=== PATIENT | male | born 1935 | race Caucasian/White ===

== ENCOUNTER 2016-03-01 12:56 | Emergency (ER) | payer MEDICARE ==
--- NOTE | 2016-03-01 13:28 | ERPHSYRPT ---
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 No chest pain now chest looks clear not yet because I didn't we discussed the was when I got the troponin were I really I get I did give him some Lasix he had a little bit of noise is breath he said he spine distal feel quite right is empiric Rocephin and Inderal by 1) Patient Subjective Stated Complaint: laceration Triage Nursing Assessment: cut lt index and middle finger yesterday with a table saw. corners of both nails removed. bleeding controlled. radial pulse presnt. Physician History: The patient is an 80 year old male who is right-handed comes in complaining of cutting his left index finger and middle finger yesterday about 22 hours ago on a table saw. He wrapped the cuts in Band-Aids and came in today because he was worried about infection due to the wood that he was using. His last tetanus vaccination was 1 year ago. He denies numbness or tingling. Timing/Duration: yesterday, hour(s) (22) Quality: other (laceration) Severity: mild Location: hands (index and middle fingers of left hand) Possible Causes: other (laceration) Associated Symptoms: denies symptoms Allergies/Adverse Reactions: No Known Drug Allergies Allergy (Unverified 03/01/16 13:05) Home Medications: Simvastatin 20Mg [Zocor 20Mg] 20 mg PO HS 09/29/11 [History] Enalapril Maleate 10 mg [Vasotec 10 MG] 10 mg PO DAILY 06/06/12 [History] Potassium Chloride 10 Meq Tab* [Klor Con 10 MEQ] 20 meq PO DAILY 11/18/13 [ History] Aspirin 81 mg PO DAILY 12/19/14 [History] Amlodipine Besylate 5 mg [Norvasc 5 mg] 5 mg PO DAILY 11/18/15 [History] Hx Tetanus, Diphtheria Vaccination/Date Given: Yes Hx Influenza Vaccination/Date Given: Yes Hx Pneumococcal Vaccination/Date Given: No Immunizations Up to Date: Yes - Review of Systems Constitutional: No Fever, No Chills Eyes: No Symptoms Ears, Nose, & Throat: No Symptoms Respiratory: No Cough, No Dyspnea Cardiac: No Chest Pain, No Edema, No Syncope Abdominal/Gastrointestinal: No Abdominal Pain, No Nausea, No Vomiting, No Diarrhea Genitourinary Symptoms: No Dysuria Musculoskeletal: No Back Pain, No Neck Pain Skin: Other (laceration) Neurological: No Dizziness, No Focal Weakness, No Sensory Changes Psychological: No Symptoms Endocrine: No Symptoms Hematologic/Lymphatic: No Symptoms Immunological/Allergic: No Symptoms All Other Systems: Reviewed and Negative - Past Medical History Pertinent Past Medical History: Yes Neurological History: No Pertinent History, Other ENT History: No Pertinent History Cardiac History: High Cholesterol, Hypertension Respiratory History: No Pertinent History Endocrine Medical History: No Pertinent History Musculoskeletal History: Arthritis, Fractures GI Medical History: Pancreatitis History: No Pertinent History Psycho-Social History: No Pertinent History Male Reproductive Disorders: No Pertinent History Other Medical History: FRACTURE RIGHT ANKLE. erectile dysfunction, hypoganadism , neck pain, left eye injury,headaches, memory problems - Past Surgical History Past Surgical History: Yes Neuro Surgical History: No Pertinent History Cardiac: Cardiac Catheterization Respiratory: No Pertinent History Gastrointestinal: Appendectomy, Hernia Repair Genitourinary: No Pertinent History Musculoskeletal: Orthopedic Surgery Male Surgical History: No Pertinent History Other Surgical History: Fatty tumor removed on back, Right leg fracture - OR, colonoscopy, appy, hernia surgery, left finger - Social History Smoking Status: Never smoker Exposure to second hand smoke: No Drug Use: none Patient Lives Alone: No - Nursing Vital Signs Nursing Vital Signs: Initial Vital Signs Temperature 97.8 F Temperature Source Oral Pulse Rate 74 Respiratory Rate 18 Blood Pressure [] 140/72 Blood Pressure [] 140/72 Blood Pressure 140/79 Pain Intensity 0 - Physical Exam General Appearance: no apparent distress, alert Eye Exam: PERRL/EOMI, eyes nml inspection Ears, Nose, Throat Exam: normal ENT inspection, pharynx normal, moist mucous membranes Neck Exam: normal inspection, non-tender, supple, full range of motion Respiratory Exam: normal breath sounds, lungs clear, No respiratory distress Cardiovascular Exam: regular rate/rhythm, normal heart sounds Gastrointestinal/Abdomen Exam: soft, mass, No tenderness Rectal Exam: not done Back Exam: normal inspection, normal range of motion, No CVA tenderness, No vertebral tenderness Extremity Exam: other (laceration to left index and middle fingers) Neurologic Exam: alert, oriented x 3, cooperative, normal mood/affect, sensation nml, No motor deficits Skin Exam: laceration (lacerations to distal left index and middle fingers. lacerations involve fingernails.) SpO2 Interpretation: normal - Radiology Exams Left Hand X-ray Interpretation: Teleradiologist Report, Non-displaced Fracture (tuft fracture of left 2nd digit) Ordered Tests: Active Orders 24 hr Category Date Time Status IV Insertion STAT Care 03/01/16 14:12 Active Wound Care STAT Care 03/01/16 13:32 Active FINGER(S) Stat Exams 03/01/16 13:32 Completed Medication Summary Generic Name Dose Route Start Last Admin Trade Name Freq PRN Reason Stop Dose Admin Ampicillin Sodium/Sulbactam Sodium 100 mls @ 100 mls/hr 03/01/16 14:13 14:20 Unasyn 3gm / Nacl 100ml IV 03/01/16 15:12 100 mls/hr STAT ONE Administration Discontinued Medications Generic Name Dose Route Start Last Admin Trade Name Freq PRN Reason Stop Dose Admin Ampicillin Sodium/Sulbactam Sodium Confirm 03/01/16 14:15 Unasyn 3gm / Nacl 100ml Administered 03/01/16 14:16 Dose 100 mls @ ud .ROUTE .STK-MED ONE - Departure Time of Disposition: 14:44 Departure Disposition: Home Clinical Impression: Open fracture Condition: Stable Critical Care Time: No Referrals: MIRACLE DUFF [Primary Care Provider] - Instructions: Care for a Laceration After Repair Prescriptions: Amoxicillin/Potassium Clav [Augmentin 875-125 Tablet] 875 mg PO BID #20 tablet
--- NOTE | 2016-03-01 14:07 | XRAY ---
Indication: Laceration following table saw injury. Comparison: Left 2nd finger study of December 19, 2014. 3 views of the left 2nd/3rd fingers demonstrates new soft tissue laceration involving the distal fingers with new cortical fracture involving the tuft of the 2nd finger. Stable mild degenerative changes of the IP joints. No other bony, articular, or soft tissue abnormalities.
[2016-03-01] MEDS ORDERED: Unasyn 3GM / NaCl 100ML 100 ML IV ONE (14:13)
[2016-03-01] MEDS ORDERED: Unasyn 3GM / NaCl 100ML 100 ML ONE (14:15)
[2016-03-01 14:23] VITALS: O2SAT 97
[2016-03-01 15:38] VITALS: BP 154/78; PULSE 72
== END 2016-03-01 15:35 | disposition home or self-care (01) ==
LOC: ED 12:56
DX: S62.651B Nondisplaced fracture of middle phalanx of left index finger, initial encounter for open fracture (principal); S61.211A Laceration without foreign body of left index finger without damage to nail, initial encounter; S61.213A Laceration without foreign body of left middle finger without damage to nail, initial encounter; W31.2XXA Contact with powered woodworking and forming machines, initial encounter; E78.00 Pure hypercholesterolemia, unspecified; I10 Essential (primary) hypertension
CPT/HCPCS: 36000; 73140; 96365; 99283; J0295

== ENCOUNTER 2016-08-19 17:18 | Emergency (ER) | payer MEDICARE ==
[2016-08-19 17:38] VITALS: O2SAT 95
--- NOTE | 2016-08-19 17:49 | ERPHSYRPT ---
- History of Present Illness Time Seen by Provider: 08/19/16 17:41 Source: patient Exam Limitations: no limitations Patient Subjective Stated Complaint: pt states he noticed swelling to his left lower leg before bedtime last evening. states this afternoon his right leg began to swell. denies any pain. reports no difference in his routine except the addition of some OTC vitamin supplements. reports past history of some renal insuff r/t chronic ibuprofen use. Triage Nursing Assessment: pt is aox3, ambulatory to cot with no difficulty, resps are easy and non labored, radial pulses are strong and equal. pedal pulses are present and strong, equal bilat. edema present in lower extremities bilat, 1+pitting to the left with non pitting edema noted to the right. Physician History: The patient is an 80-year-old male with his daughter complaining of bilateral leg swelling that began last night and has continued today. The swelling isn't severe but the daughter looked up what might cause leg swelling on the Internet and became concerned. He denies any shortness of breath. He denies fever or chills. He denies chest pain. His past medical history is significant for hypertension, BPH, and high cholesterol. Occurred: yesterday Quality: other (swelling) Severity of Pain-Max: mild Severity of Pain-Current: mild (swelling) Modifying Factors: Improves With: nothing Associated Symptoms: none Allergies/Adverse Reactions: No Known Drug Allergies Allergy (Verified 08/19/16 17:38) Home Medications: Simvastatin 20Mg [Zocor 20Mg] 20 mg PO HS 09/29/11 [History] Enalapril Maleate 10 mg [Vasotec 10 MG] 10 mg PO DAILY 06/06/12 [History] Potassium Chloride 10 Meq Tab* [Klor Con 10 MEQ] 20 meq PO DAILY 11/18/13 [ History] Aspirin 81 mg PO DAILY 12/19/14 [History] Amlodipine Besylate 5 mg [Norvasc 5 mg] 5 mg PO DAILY 11/18/15 [History] Losartan Potassium 50 mg [Cozaar 50 MG] 50 mg PO DAILY 08/19/16 [History] Multivit-Min/FA/Lycopen/Lutein [Centrum Silver Men Tablet] 1 each PO DAILY 08/19 [History] Randall-3 Fatty Acids/Fish Oil [Fish Oil 1,000 mg Capsule] 1,000 mg PO DAILY 08/19/16 [History] Hx Tetanus, Diphtheria Vaccination/Date Given: Yes Hx Influenza Vaccination/Date Given: Yes Hx Pneumococcal Vaccination/Date Given: Yes Immunizations Up to Date: Yes - Review of Systems Constitutional: No Fever, No Chills Eyes: No Symptoms Ears, Nose, & Throat: No Symptoms Respiratory: No Cough, No Dyspnea Cardiac: No Chest Pain, No Edema, No Syncope Abdominal/Gastrointestinal: No Abdominal Pain, No Nausea, No Vomiting, No Diarrhea Genitourinary Symptoms: No Dysuria Musculoskeletal: No Back Pain, No Neck Pain Skin: Other (leg swelling) Neurological: No Dizziness, No Focal Weakness, No Sensory Changes Psychological: No Symptoms Endocrine: No Symptoms Hematologic/Lymphatic: No Symptoms Immunological/Allergic: No Symptoms All Other Systems: Reviewed and Negative - Past Medical History Pertinent Past Medical History: Yes Neurological History: No Pertinent History, Other ENT History: No Pertinent History Cardiac History: High Cholesterol, Hypertension Respiratory History: No Pertinent History Endocrine Medical History: No Pertinent History Musculoskeletal History: Arthritis, Fractures GI Medical History: Pancreatitis History: No Pertinent History Psycho-Social History: No Pertinent History Male Reproductive Disorders: No Pertinent History Other Medical History: FRACTURE RIGHT ANKLE. erectile dysfunction, hypoganadism , neck pain, left eye injury,headaches, memory problems - Past Surgical History Past Surgical History: Yes Neuro Surgical History: No Pertinent History Cardiac: Cardiac Catheterization Respiratory: No Pertinent History Gastrointestinal: Appendectomy, Hernia Repair Genitourinary: No Pertinent History Musculoskeletal: Orthopedic Surgery Male Surgical History: No Pertinent History Other Surgical History: Fatty tumor removed on back, Right leg fracture - OR, colonoscopy, appy, hernia surgery, left finger - Social History Smoking Status: Never smoker Exposure to second hand smoke: No Drug Use: none Patient Lives Alone: Yes - Nursing Vital Signs Nursing Vital Signs: Initial Vital Signs Temperature 98.3 F Temperature Source Oral Pulse Rate 63 Respiratory Rate 18 Blood Pressure [] 129/83 Pain Intensity 0 - Physical Exam General Appearance: alert Eyes, Ears, Nose, Throat Exam: moist mucous membranes Neck Exam: non-tender, supple Cardiovascular/Respiratory Exam: chest non-tender, normal breath sounds, regular rate/rhythm, no respiratory distress Gastrointestinal/Abdominal Exam: non-tender, guarding Back Exam: normal inspection, No vertebral tenderness Legs Exam: bilateral leg: swelling (Examination of both lower legs reveals mild 1+ pitting edema. There is an obvious no edema from where the patient had been wearing his tight socks all day. There is some sided edema proximal to the sock line.) Neuro/Tendon Exam: normal sensation, normal motor functions Mental Status Exam: alert, oriented x 3, cooperative Skin Exam: normal color, warm, dry SpO2 Interpretation: normal SpO2: 95 Oxygen Delivery: Room Air - Radiology Exams Chest X-ray Interpretation: Interpreted by me, Other (mild pulmonary vascular congestion.) Ordered Tests: Active Orders 24 hr Category Date Time Status CHEST 2 VIEWS (PA AND LAT) Stat Exams 08/19/16 17:53 Taken CBC W DIFF Stat Lab 08/19/16 18:00 Completed CMP Stat Lab 08/19/16 18:00 Received Lab/Rad Data: Laboratory Result Diagrams 08/19/16 18:00 08/19/16 18:00 Laboratory Results 08/19/16 08/19/16 Range/Units 18:00 18:00 WBC 6.7 (4.0-10.5) K/mm3 RBC 3.78 L (4.1-5.6) M/mm3 Hgb 12.7 (12.5-18.0) gm/dl Hct 36.5 L (42-50) % MCV 96.6 (78-100) fl MCH 33.5 H (26-32) pg MCHC 34.8 (32-36) g/dl RDW 12.1 (11.5-14.0) % Plt Count 157 (150-450) K/mm3 MPV 10.7 H (6-9.5) fl Gran % 66.6 H (36.0-66.0) % Lymphocytes % 23.5 L (24.0-44.0) % Monocytes % 8.8 (0.0-12.0) % Eosinophils % 1.0 (0.00-5.0) % Basophils % 0.1 (0.0-0.4) % Basophils # 0.01 (0-0.4) Sodium 143 (136-145) mEq/L Potassium 3.8 (3.5-5.1) mEq/L Chloride 106 (98-107) mEq/L Carbon Dioxide 26.6 (21-32) mEq/L Anion Gap 14.4 (5-15) MEQ/L BUN 20 (9-20) mg/dL Creatinine 1.21 (0.55-1.30) mg/dl Estimated GFR > 60 ML/MIN Glucose 122 H (70-110) MG/DL Calcium 8.7 (8.5-10.1) mg/dL Total Bilirubin 0.60 (0.2-1.0) mg/dL AST 22 (15-37) U/L ALT 13 (12-78) U/L Alkaline Phosphatase 71 (46-116) U/L Serum Total Protein 6.6 (6.4-8.2) gm/dL Albumin 3.7 (3.4-5.0) g/dL - Progress Progress: unchanged Counseled pt/family regarding: lab results, diagnosis, need for follow-up, rad results - Departure Time of Disposition: 18:30 Departure Disposition: Home Clinical Impression: Congestive heart failure Condition: Stable Critical Care Time: No Instructions: Heart Failure Additional Instructions: You have mild congestive heart failure. The chest x-ray shows that you have very mild pulmonary vascular congestion due to the congestive heart failure. Your laboratory values were within normal limits. Take Lasix 20 mg twice a day for 3 days. To balance the potassium loss that the Lasix causes, take potassium 20 mEq once a day for 3 days. Follow-up on Sunday. Prescriptions: Furosemide 20 mg [Lasix 20 mg] 20 mg PO BID #6 tablet Potassium Chloride 10 Meq Tab* [Klor Con 10 MEQ] 20 meq PO DAILY #3 tab
[2016-08-19 18:08] LABS: BASOPHIL % 0.1 % (0.0-0.4); Granulocytes % 66.6 % (36.0-66.0); Lymphocytes % 23.5 % (24.0-44.0); Mean Cell Volume 96.6 fl (78-100); Mean Corpuscular Hemoglobin 33.5 pg (26-32); Mean Platelet Volume 10.7 fl (6-9.5); Monocytes % 8.8 % (0.0-12.0); Platelet Count 157 K/mm3 (150-450); Red Blood Count 3.78 M/mm3 (4.1-5.6); Red Cell Distribution Width 12.1 % (11.5-14.0); White Blood Count 6.7 K/mm3 (4.0-10.5)
[2016-08-19 18:26] LABS: ALBUMIN 3.7 g/dL (3.4-5.0); ALKALINE PHOSPHATASE 71 U/L (46-116); ANION GAP 14.4 MEQ/L (5-15); BLOOD UREA NITROGEN 20 mg/dL (9-20); CHLORIDE 106 mEq/L (98-107); Carbon Dioxide 26.6 mEq/L (21-32); Glucose 122 MG/DL (70-110); Potassium 3.8 mEq/L (3.5-5.1); SGOT/AST 22 U/L (15-37); SGPT/ALT 13 U/L (12-78); SODIUM 143 mEq/L (136-145); Total Protein 6.6 gm/dL (6.4-8.2)
[2016-08-19] MEDS ORDERED: Klor Con 10 MEQ PO ONE ×2 (18:50→18:51)
[2016-08-19] MEDS ORDERED: LASIX 20 MG PO STA (18:50)
[2016-08-19 19:03] VITALS: BP 130/68; PULSE 72
--- NOTE | 2016-08-19 21:58 | XRAY ---
Indication: Lower leg swelling. Comparison: November 18, 2015. PA/lateral chest again demonstrates minimal bibasilar fibrosis/scarring. Upper lungs clear. Heart is not enlarged. Vascularity normal. Bony thorax intact again with mild osteopenia and degenerative changes. Impression: Stable nonacute chest with chronic features.
== END 2016-08-19 18:57 | disposition home or self-care (01) ==
LOC: ED 17:18
DX: I50.9 Heart failure, unspecified (principal); M79.89 Other specified soft tissue disorders; I10 Essential (primary) hypertension; E78.00 Pure hypercholesterolemia, unspecified; N40.0 Benign prostatic hyperplasia without lower urinary tract symptoms; Z79.899 Other long term (current) drug therapy
CPT/HCPCS: 36415; 71020; 80053; 85025; 99283; A9270-GY

== ENCOUNTER 2017-03-04 15:07 | Emergency (ER) | payer MEDICARE ==
[2017-03-04 15:24] VITALS: O2SAT 96
--- NOTE | 2017-03-04 15:54 | ERPHSYRPT ---
- History of Present Illness Time Seen by Provider: 03/04/17 15:41 Source: patient Patient Subjective Stated Complaint: here for pain to left leg, from thigh to calf with swellling, no injury Triage Nursing Assessment: pt alert, walked in Physician History: CC: left leg swelling Hx: 81 y/o patient of Dr Duff with hx of HTN. 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 A few days he worked a long time standing. He then had swelling of the left leg and some pain. No hx of venous thromboembolic disease. He has hx of gout and takes the medication sporadically. No fever or chills. No redness. Some pain centered around the left knee but no redness. Pain worse with moving. Seems better since propping it up. Allergies/Adverse Reactions: No Known Drug Allergies Allergy (Verified 08/19/16 17:38) Home Medications: Simvastatin 20Mg [Zocor 20Mg] 20 mg PO HS 09/29/11 [History] Enalapril Maleate 10 mg [Vasotec 10 MG] 10 mg PO DAILY 06/06/12 [History] Potassium Chloride 10 Meq Tab* [Klor Con 10 MEQ] 20 meq PO DAILY 11/18/13 [ History] Aspirin 81 mg PO DAILY 12/19/14 [History] Amlodipine Besylate 5 mg [Norvasc 5 mg] 5 mg PO DAILY 11/18/15 [History] Losartan Potassium 50 mg [Cozaar 50 MG] 50 mg PO DAILY 08/19/16 [History] Multivit-Min/FA/Lycopen/Lutein [Centrum Silver Men Tablet] 1 each PO DAILY 08/19 [History] Gilbert-3 Fatty Acids/Fish Oil [Fish Oil 1,000 mg Capsule] 1,000 mg PO DAILY 08/19/16 [History] Hx Tetanus, Diphtheria Vaccination/Date Given: Yes Hx Influenza Vaccination/Date Given: Yes Hx Pneumococcal Vaccination/Date Given: Yes Immunizations Up to Date: Yes - Review of Systems Constitutional: No Fever, No Chills Respiratory: No Dyspnea Cardiac: Edema (left leg), No Chest Pain Abdominal/Gastrointestinal: No Abdominal Pain Musculoskeletal: No Back Pain, No Neck Pain, No Injury, No Joint Redness Skin: No Rash Neurological: No Headache All Other Systems: Reviewed and Negative - Past Medical History Pertinent Past Medical History: Yes Neurological History: No Pertinent History, Other ENT History: No Pertinent History Cardiac History: High Cholesterol, Hypertension Respiratory History: No Pertinent History Endocrine Medical History: No Pertinent History Musculoskeletal History: Arthritis, Fractures GI Medical History: Pancreatitis History: No Pertinent History Psycho-Social History: No Pertinent History Male Reproductive Disorders: No Pertinent History Other Medical History: FRACTURE RIGHT ANKLE. erectile dysfunction, hypoganadism , neck pain, left eye injury,headaches, memory problems - Past Surgical History Past Surgical History: Yes Neuro Surgical History: No Pertinent History Cardiac: Cardiac Catheterization Respiratory: No Pertinent History Gastrointestinal: Appendectomy, Hernia Repair Genitourinary: No Pertinent History Musculoskeletal: Orthopedic Surgery Male Surgical History: No Pertinent History Other Surgical History: Fatty tumor removed on back, Right leg fracture - OR, colonoscopy, appy, hernia surgery, left finger - Social History Smoking Status: Never smoker Exposure to second hand smoke: No Drug Use: none Patient Lives Alone: No - Nursing Vital Signs Nursing Vital Signs: Initial Vital Signs Temperature 97.7 F 03/04/17 15:18 Pulse Rate 73 03/04/17 15:18 Respiratory Rate 16 03/04/17 15:18 Blood Pressure 150/90 03/04/17 15:18 O2 Sat by Pulse Oximetry 96 03/04/17 15:18 Pain Scale Pain Intensity 4 - Physical Exam General Appearance: alert, other (pleasant man) Eyes, Ears, Nose, Throat Exam: normal ENT inspection, moist mucous membranes Neck Exam: normal inspection, non-tender, supple Cardiovascular/Respiratory Exam: chest non-tender, normal breath sounds, regular rate/rhythm Gastrointestinal/Abdominal Exam: non-tender, soft Back Exam: normal inspection, normal range of motion Neuro/Tendon Exam: normal sensation, normal motor functions Mental Status Exam: alert, oriented x 3, cooperative Skin Exam: warm, dry, No rash SpO2 Interpretation: normal SpO2: 96 Oxygen Delivery: Room Air Comments: left leg has some edema, calf tenderness, tenderness around knee, no redness or warmth. - Course Nursing assessment & vital signs reviewed: Yes - Radiology Exams left knee X-ray Interpretation: Interpreted by me (DC, no fx) - Radiology Ultrasound Exam left leg Ultrasound: Other (negative for DVT per tech) Ordered Tests: Active Orders 24 hr Category Date Time Status KNEE (1 OR 2 VIEW) Stat Exams 03/04/17 15:48 Taken VENOUS UNILAT/LIMITED EXTREMIT [US] Stat Exams 03/04/17 15:48 Taken BMP Stat Lab 03/04/17 16:03 Completed CBC W DIFF Stat Lab 03/04/17 16:03 Completed Uric Acid Stat Lab 03/04/17 16:03 Completed Lab/Rad Data: Laboratory Result Diagrams 03/04/17 16:03 03/04/17 16:03 Laboratory Results 03/04/17 03/04/17 Range/Units 16:03 16:03 WBC 6.4 (4.0-10.5) K/mm3 RBC 3.97 L (4.1-5.6) M/mm3 Hgb 13.0 (12.5-18.0) gm/dl Hct 38.4 L (42-50) % MCV 96.7 (78-100) fl MCH 32.7 H (26-32) pg MCHC 33.9 (32-36) g/dl RDW 12.0 (11.5-14.0) % Plt Count 162 (150-450) K/mm3 MPV 10.2 H (6-9.5) fl Gran % 61.5 (36.0-66.0) % Lymphocytes % 26.6 (24.0-44.0) % Monocytes % 10.6 (0.0-12.0) % Eosinophils % 1.1 (0.00-5.0) % Basophils % 0.2 (0.0-0.4) % Basophils # 0.01 (0-0.4) Sodium 140 (136-145) mEq/L Potassium 3.8 (3.5-5.1) mEq/L Chloride 104 (98-107) mEq/L Carbon Dioxide 30.6 (21-32) mEq/L Anion Gap 9.3 (5-15) MEQ/L BUN 27 H (9-20) mg/dL Creatinine 1.67 H (0.55-1.30) mg/dl Estimated GFR 42 ML/MIN Glucose 130 H (70-110) MG/DL Uric Acid 8.4 H (3.5-7.2) mg/dL Calcium 8.7 (8.5-10.1) mg/dL - Progress Progress Note: 03/04/17 15:54 Will get sono to rule out DVT. Will check gout. 03/04/17 16:59 No sign of infection. Negative for DVT. Will Rx gout with colchicine and prednisone. Advised avoid NAIDS due to renal insufficiency. Counseled pt/family regarding: lab results, diagnosis, need for follow-up, rad results - Departure Time of Disposition: 16:59 Departure Disposition: Home Clinical Impression: Left knee pain, Gout, Renal insufficiency Condition: Fair Critical Care Time: No Referrals: MIRACLE DUFF [Primary Care Provider] - Instructions: Knee Pain (DC), Gout Additional Instructions: Avoid NSAIDS: ibuprofen, alleve, etc. Rx prednisone. Rx colchicine. Tylenol as directed for pain. Elevate legs. Follow up this week with Dr Duff. Return for fever or concerns. Prescriptions: Colchicine 0.6 mg PO BID #10 capsule Prednisone 20 mg [Deltasone 20 mg] 20 mg PO DAILY #5 tablet
[2017-03-04 16:26] LABS: BASOPHIL % 0.2 % (0.0-0.4); Basophil (Absolute #) 0.01 (0-0.4); Eosinophil % 1.1 % (0.00-5.0); Eosinophil (Absolute #) 0.07 (0-0.5); Granulocyte Absolute (ANC) 3.93 (1.4-6.9); Granulocytes % 61.5 % (36.0-66.0); Hematocrit 38.4 % (42-50); Lymphocytes % 26.6 % (24.0-44.0); Mean Cell Volume 96.7 fl (78-100); Mean Corpuscular Hemoglobin 32.7 pg (26-32); Mean Corpuscular Hgb Concent. 33.9 g/dl (32-36); Mean Platelet Volume 10.2 fl (6-9.5); Monocyte (Absolute #) 0.68 (0.0-1.3); Monocytes % 10.6 % (0.0-12.0); Platelet Count 162 K/mm3 (150-450); Red Blood Count 3.97 M/mm3 (4.1-5.6); White Blood Count 6.4 K/mm3 (4.0-10.5)
[2017-03-04 16:27] VITALS: BP 118/76; PULSE 80
[2017-03-04 16:36] LABS: ANION GAP 9.3 MEQ/L (5-15); Calcium 8.7 mg/dL (8.5-10.1); Carbon Dioxide 30.6 mEq/L (21-32); Creatinine 1 1.67 mg/dl (0.55-1.30); Potassium 3.8 mEq/L (3.5-5.1); Uric Acid 8.4 mg/dL (3.5-7.2)
--- NOTE | 2017-03-04 20:21 | XRAY ---
Indication: Left leg edema 3 days. Two-dimensional sonogram and color Doppler imaging of the major venous vessels of the left leg was performed. Comparison: None No thrombus seen in the examined deep venous vessels of the left leg including greater saphenous vein. Veins demonstrate normal compressibility. Venous waveforms are normal with and without augmentation. Impression: Left leg negative for DVT. Comment: Preliminary report was given.
--- NOTE | 2017-03-04 20:21 | XRAY ---
Indication: Pain and swelling. No known injury. Comparison: None AP/lateral left knee demonstrates mild medial joint space narrowing and small nonspecific effusion. No other bony, articular, or soft tissue abnormalities.
== END 2017-03-04 17:13 | disposition home or self-care (01) ==
LOC: ED 15:07
DX: M25.562 Pain in left knee (principal); M10.9 Gout, unspecified; N28.9 Disorder of kidney and ureter, unspecified; I10 Essential (primary) hypertension; M19.90 Unspecified osteoarthritis, unspecified site; Z79.899 Other long term (current) drug therapy
CPT/HCPCS: 36415; 73560; 80048; 84550; 85025; 93971; 99283; 99284

== ENCOUNTER 2018-06-21 20:02 | Emergency (ER) | payer MEDICARE ==
--- NOTE | 2018-06-21 20:38 | ERPHSYRPT ---
- History of Present Illness Time Seen by Provider: 06/21/18 20:18 Source: patient Exam Limitations: clinical condition Patient Subjective Stated Complaint: pt states he was working on the roof yesterday afternoon and fell backwards onto the roof and hit his rt elbow. daughter states she is concerned there may be asphalt from the roof in it. Triage Nursing Assessment: pt alert and oreinted, answers questions approp. pt ambulatory eith steady gait noted. respirations nonlabored with lungs cta. pupils equal and reacitve. senior windows systems engineer equal and wnl. pt reports sensation wnl. skin tears and bruising noted to rt elbow. no bleeding at this time. rom to rt elbow wnl Physician History: PATIENT WITH A HISTORY OF HYPERTENSION, SLIPPED WHILE WORKING ON A ROOF AND STRUCK HIS RIGHT ELBOW AGAINST THE ROOF LAST NIGHT. PATIENT COMPLAINS OF RIGHT ELBOW PAIN, AND ABRASION OVER RIGHT ELBOW. HE DENIES HEAD INJURY, NECK OR BACK INJURY. Occurred: yesterday Method of Injury: direct blow Quality: constant Severity of Pain-Max: mild Severity of Pain-Current: mild Extremities Pain Location: elbow: right Modifying Factors: Improves With: movement Associated Symptoms: none Allergies/Adverse Reactions: No Known Drug Allergies Allergy (Verified 06/21/18 20:32) Home Medications: Enalapril Maleate 10 mg [Vasotec 10 MG] 10 mg PO DAILY 06/06/12 [History] Potassium Chloride 10 Meq Tab* [Klor Con 10 MEQ] 10 meq PO BID 11/18/13 [ History] Aspirin 81 mg PO DAILY 12/19/14 [History] Losartan Potassium 50 mg [Cozaar 50 MG] 50 mg PO DAILY 08/19/16 [History] Pravastatin Sodium [Pravachol] 40 mg PO HS 06/21/18 [History] Tamsulosin HCl 0.4 mg [Flomax 0.4 MG] 0.4 mg PO DAILY 06/21/18 [History] Hx Tetanus, Diphtheria Vaccination/Date Given: Yes Hx Influenza Vaccination/Date Given: Yes Hx Pneumococcal Vaccination/Date Given: Yes Immunizations Up to Date: Yes - Review of Systems Constitutional: No Symptoms Musculoskeletal: Injury, Joint Pain, Joint Swelling Neurological: No Symptoms Psychological: No Symptoms - Past Medical History Pertinent Past Medical History: Yes Neurological History: No Pertinent History, Other ENT History: No Pertinent History Cardiac History: High Cholesterol, Hypertension Respiratory History: No Pertinent History Endocrine Medical History: No Pertinent History Musculoskeletal History: Arthritis, Fractures GI Medical History: Pancreatitis History: No Pertinent History Psycho-Social History: No Pertinent History Male Reproductive Disorders: No Pertinent History Other Medical History: FRACTURE RIGHT ANKLE. erectile dysfunction, hypoganadism , neck pain, left eye injury,headaches, memory problems - Past Surgical History Past Surgical History: Yes Neuro Surgical History: No Pertinent History Cardiac: Cardiac Catheterization Respiratory: No Pertinent History Gastrointestinal: Appendectomy, Hernia Repair Genitourinary: No Pertinent History Musculoskeletal: Orthopedic Surgery Male Surgical History: No Pertinent History Other Surgical History: Fatty tumor removed on back, Right leg fracture - OR, colonoscopy, appy, hernia surgery, left finger - Social History Smoking Status: Never smoker Exposure to second hand smoke: No Drug Use: none Patient Lives Alone: Yes - Nursing Vital Signs Nursing Vital Signs: Initial Vital Signs Temperature 97.6 F 06/21/18 20:11 Pulse Rate 73 06/21/18 20:11 Respiratory Rate 18 06/21/18 20:11 Blood Pressure 161/83 06/21/18 20:11 O2 Sat by Pulse Oximetry 96 06/21/18 20:11 Pain Scale Pain Intensity 0 - Physical Exam Elbow/Forearm Exam: abrasions (RIGHT RADIAL PULSE 2+), pain, soft tissue tenderness (THERE IS FULL RANGE OF MOTION RIGHT ELBOW, SUPERFICIAL ABRASION WITH SLIGHT ECCHYMOSIS 4CM X 5CM EXTENDING FROM LATERAL EPICONDYLE TO OLECRANON) SpO2: 96 Ordered Tests: Active Orders 24 hr Category Date Time Status Wound Care STAT Care 06/21/18 20:16 Active ELBOW (MINIMUM 3 VIEWS) Stat Exams 06/21/18 20:17 Ordered - Progress Progress Note: 06/21/18 20:52 WOUND CLEANSED WITH HIBICLENS, KEFLEX 500MG ORALLY. Counseled pt/family regarding: diagnosis, need for follow-up, rad results - Departure Departure Disposition: Home Clinical Impression: CONTUSION/ABRASION RIGHT ELBOW Condition: Stable Critical Care Time: No Referrals: MIRACLE DUFF [Primary Care Provider] - Additional Instructions: ANTIBIOTIC AUGMENTIN 875MG TWICE DAILY FOR 7 DAYS. CLEANS WOUND WITH SOAP AND WATER PRIOR TO APPLICATION OF BACITRACIN OINTMENT TWICE DAILY FOR 10 DAYS. WATCH FOR SIGNS OF INFECTION, REDNESS, SWELLING AND DRAINAGE Prescriptions: Amox Tr/Potass Clav. 875 mg [Augmentin 875-125 Tablet] 875 mg PO BID #14 tablet
[2018-06-21] MEDS ORDERED: KEFLEX 500 MG ONE (21:14)
[2018-06-21] MEDS ORDERED: KEFLEX 500 MG PO ONE (21:15)
[2018-06-21] MEDS ORDERED: BACIGUENT PACKET TP ONE (21:16)
[2018-06-21 21:42] VITALS: BP 141/77; PULSE 74; O2SAT 97
--- NOTE | 2018-06-22 08:07 | XRAY ---
Indication: Pain following fall. Comparison: None 3 views of the right elbow demonstrates degenerative spurring of the coronoid process and medial/lateral epicondyle heterotopic ossifications. No other bony, articular, or soft tissue abnormalities.
== END 2018-06-21 21:43 | disposition home or self-care (01) ==
LOC: ED 20:02
DX: S50.01XA Contusion of right elbow, initial encounter (principal); S50.311A Abrasion of right elbow, initial encounter; W01.10XA Fall on same level from slipping, tripping and stumbling with subsequent striking against unspecified object, initial encounter; E78.00 Pure hypercholesterolemia, unspecified; I10 Essential (primary) hypertension; Z79.899 Other long term (current) drug therapy
CPT/HCPCS: 73080; 99283; A9270-GY

== ENCOUNTER 2021-02-20 19:55 | Emergency (ER) | payer MEDICARE ==
[2021-02-20] MEDS ORDERED: MORPHINE SULFATE 2 MG INJ IV ONE (20:10)
[2021-02-20] MEDS ORDERED: Zofran 4 MG/2 ML VIAL IV ONE (20:10)
--- NOTE | 2021-02-20 20:10 | ERPHSYRPT ---
- History of Present Illness Time Seen by Provider: 02/20/21 20:00 Source: patient Exam Limitations: no limitations Physician History: This is an 85-year-old white male patient of Dr. Gm Zapien and has a history of hypertension, elevated cholesterol and prostate issues. In the last 4 days, the patient has noticed intermittent dizziness so he took his blood pressure several times a day for the last 4 days and it has been running high. The systolic blood pressures ranging anywhere from 150s to the low 200s. Tonight, he was dizzy. He did not take his blood pressure medicine this evening. He has no chest pain. He has no shortness of breath. He has no abdominal pain. He does see a stopping builder but he does not know the name of the stopping builder. He does see this stopping builder in [facility]. Timing/Duration: day(s) (4), intermittent, worse Severity: mild (To moderate) Associated Symptoms: headaches (And dizziness), No shortness of breath, No chest pain, No weakness Allergies/Adverse Reactions: No Known Drug Allergies Allergy (Verified 02/20/21 20:00) Home Medications: Aspirin 81 mg PO DAILY 12/19/14 [History] Losartan Potassium 50 mg [Cozaar 50 MG] 50 mg PO DAILY 08/19/16 [History] Pravastatin Sodium [Pravachol] 40 mg PO HS 06/21/18 [History] Tamsulosin HCl 0.4 mg [Flomax 0.4 MG] 0.4 mg PO DAILY 06/21/18 [History] Allopurinol 100 mg [Zyloprim 100 mg] 100 mg PO DAILY 02/20/21 [History] Donepezil HCl [Aricept] 5 mg PO DAILY 02/20/21 [History] Loratadine 10 mg [Claritin 10 mg] 10 mg PO DAILY 02/20/21 [History] Hx Tetanus, Diphtheria Vaccination/Date Given: Yes Hx Influenza Vaccination/Date Given: Yes Hx Pneumococcal Vaccination/Date Given: Yes Travel Risk - International Travel Have you traveled outside of the country in past 3 weeks: No - Coronavirus Screening Are you exhibiting any of the following symptoms?: No Close contact with a COVID-19 positive Pt in past 14-21 Days: No - Review of Systems Constitutional: No Symptoms Eyes: No Symptoms Ears, Nose, & Throat: No Symptoms Respiratory: No Symptoms Cardiac: No Symptoms Abdominal/Gastrointestinal: No Symptoms Genitourinary Symptoms: No Symptoms Musculoskeletal: No Symptoms Skin: No Symptoms Neurological: Dizziness, Headache Psychological: No Symptoms Endocrine: No Symptoms Hematologic/Lymphatic: No Symptoms Immunological/Allergic: No Symptoms All Other Systems: Reviewed and Negative - Past Medical History Pertinent Past Medical History: Yes Neurological History: No Pertinent History, Other ENT History: No Pertinent History Cardiac History: High Cholesterol, Hypertension Respiratory History: No Pertinent History Endocrine Medical History: No Pertinent History Musculoskeletal History: Arthritis, Fractures GI Medical History: Pancreatitis History: No Pertinent History Psycho-Social History: No Pertinent History Male Reproductive Disorders: No Pertinent History Other Medical History: FRACTURE RIGHT ANKLE. erectile dysfunction, hypoganadism, neck pain, left eye injury,headaches, memory problems - Past Surgical History Past Surgical History: Yes Neuro Surgical History: No Pertinent History Cardiac: Cardiac Catheterization Respiratory: No Pertinent History Gastrointestinal: Appendectomy, Hernia Repair Genitourinary: No Pertinent History Musculoskeletal: Orthopedic Surgery Male Surgical History: No Pertinent History Other Surgical History: Fatty tumor removed on back, Right leg fracture - OR, colonoscopy, appy, hernia surgery, left finger - Social History Smoking Status: Never smoker Exposure to second hand smoke: No Drug Use: none Patient Lives Alone: Yes - Nursing Vital Signs Nursing Vital Signs: Initial Vital Signs Temperature 97.2 F 02/20/21 19:55 Respiratory Rate 18 02/20/21 19:55 Blood Pressure 230/109 02/20/21 19:55 O2 Sat by Pulse Oximetry 98 02/20/21 19:55 Pain Scale Pain Intensity 1 - Physical Exam General Appearance: no apparent distress, alert, anxiety Eye Exam: PERRL/EOMI, eyes nml inspection Ears, Nose, Throat Exam: normal ENT inspection, moist mucous membranes Neck Exam: normal inspection, non-tender, supple, full range of motion Respiratory Exam: normal breath sounds, lungs clear, airway intact, No chest tenderness, No respiratory distress Cardiovascular Exam: regular rate/rhythm, normal heart sounds, normal peripheral pulses Gastrointestinal/Abdomen Exam: soft, normal bowel sounds, No tenderness Rectal Exam: not done Back Exam: normal inspection, normal range of motion, No CVA tenderness, No vertebral tenderness Extremity Exam: normal inspection, normal range of motion, pelvis stable Neurologic Exam: alert, oriented x 3, cooperative, music department chair II-XII nml as tested, normal mood/affect, nml cerebellar function, nml station & gait, sensation nml Skin Exam: normal color, warm, dry Lymphatic Exam: No adenopathy SpO2 Interpretation: normal O2 Delivery: Room Air - Course Nursing assessment & vital signs reviewed: Yes EKG Interpreted by Me: RATE (80), Sinus Rhythm, NORMAL AXIS, NORMAL INTERVALS, NORMAL QRS, NORMAL ST-T, Other (Occasional PVCs. No acute ischemic changes on today's EKG. No change from comparison EKG dated 11/18/2015.) Ordered Tests: Active Orders 24 hr Category Date Time Status Mold Sheet Cleaner STAT Care 02/20/21 20:11 Active EKG-ER Only STAT Care 02/20/21 20:10 Active IV Insertion STAT Care 02/20/21 20:10 Active Pulse Oximetry (ED) STAT Care 02/20/21 20:10 Active HEAD WITHOUT CONTRAST [CT] Stat Exams 02/20/21 20:11 Taken CBC W DIFF Stat Lab 02/20/21 20:27 Completed CMP Stat Lab 02/20/21 20:27 Completed MAGNESIUM Stat Lab 02/20/21 20:27 Completed NT PRO BNP Stat Lab 02/20/21 20:27 Completed PROTIME WITH INR Stat Lab 02/20/21 20:27 Completed TROPONIN Q3H Lab 02/20/21 20:27 Completed TROPONIN Q3H Lab 02/20/21 23:15 Ordered TROPONIN Q3H Lab 02/21/21 02:15 Ordered TROPONIN Q3H Lab 02/21/21 05:15 Ordered TROPONIN Q3H Lab 02/21/21 08:15 Ordered Medication Summary Discontinued Medications Generic Name Dose Route Start Last Admin Trade Name Freq PRN Reason Stop Dose Admin Enalaprilat 1.25 mg 02/20/21 20:12 02/20/21 20:17 Enalaprilat 2.5 Mg Injection IV 02/20/21 20:13 1.25 mg STAT ONE Administration Enalaprilat Confirm 02/20/21 20:16 Enalaprilat 2.5 Mg Injection Administered 02/20/21 20:17 Dose 2.5 mg IV .STK-MED ONE Enalaprilat 0.625 mg 02/20/21 21:08 Enalaprilat 2.5 Mg Injection IV 02/20/21 21:09 STAT ONE Morphine Sulfate 2 mg 02/20/21 20:10 02/20/21 20:18 Morphine Sulfate 2 Mg/Ml Inj IV 02/20/21 20:11 2 mg STAT ONE Administration Morphine Sulfate Confirm 02/20/21 20:16 Morphine Sulfate 2 Mg/Ml Inj Administered 02/20/21 20:17 Dose 2 mg .ROUTE .STK-MED ONE Ondansetron HCl 4 mg 02/20/21 20:10 02/20/21 20:17 Ondansetron Hcl 4 Mg/2 Ml Vial IV 02/20/21 20:11 4 mg STAT ONE Administration Ondansetron HCl Confirm 02/20/21 20:16 Ondansetron Hcl 4 Mg/2 Ml Vial Administered 02/20/21 20:17 Dose 4 mg .ROUTE .STK-MED ONE Lab/Rad Data: Laboratory Result Diagrams 02/20/21 20:27 02/20/21 20:27 Laboratory Results 02/20/21 02/20/21 02/20/21 Range/Units 20:27 20:27 20:27 WBC (4.0-10.5) K/mm3 RBC (4.1-5.6) M/mm3 Hgb (12.5-18.0) gm/dl Hct (42-50) % MCV (78-100) fl MCH (26-32) pg MCHC (32-36) g/dl RDW (11.5-14.0) % Plt Count (150-450) K/mm3 MPV (7.5-11.0) fl Gran % (36.0-66.0) % Eos # (Auto) (0-0.5) Absolute Lymphs (auto) (1.0-4.6) Absolute Monos (auto) (0.0-1.3) Lymphocytes % (24.0-44.0) % Monocytes % (0.0-12.0) % Eosinophils % (0.00-5.0) % Basophils % (0.0-0.4) % Absolute Granulocytes (1.4-6.9) Basophils # (0-0.4) PT 11.9 (9.4-12.5) SECONDS INR 1.01 (0.8-3.0) Sodium 132 L (137-145) mmol/L Potassium 4.0 (3.5-5.1) mmol/L Chloride 92 L (98-107) mmol/L Carbon Dioxide 32 H (22-30) mmol/L Anion Gap 10.7 (5-15) MEQ/L BUN 15 (9-20) mg/dL Creatinine 1.17 (0.66-1.25) mg/dL Estimated GFR > 60.0 ML/MIN Glucose 102 (74-106) mg/dL Calcium 9.1 (8.4-10.2) mg/dL Magnesium 2.1 (1.6-2.3) mg/dL Total Bilirubin 0.60 (0.2-1.3) mg/dL AST 25 (17-59) U/L ALT 10 (0-50) U/L Alkaline Phosphatase 74 (38-126) U/L Troponin I < 0.012 (0.000-0.034) ng/mL NT-Pro-B Natriuret Pep 324 (0-1800) pg/mL Serum Total Protein 7.2 (6.3-8.2) g/dL Albumin 4.3 (3.5-5.0) g/dL 02/20/21 Range/Units 20:27 WBC 7.5 (4.0-10.5) K/mm3 RBC 4.28 (4.1-5.6) M/mm3 Hgb 14.3 (12.5-18.0) gm/dl Hct 41.3 L (42-50) % MCV 96.5 (78-100) fl MCH 33.4 H (26-32) pg MCHC 34.6 (32-36) g/dl RDW 11.7 (11.5-14.0) % Plt Count 197 (150-450) K/mm3 MPV 9.5 (7.5-11.0) fl Gran % 65.7 (36.0-66.0) % Eos # (Auto) 0.10 (0-0.5) Absolute Lymphs (auto) 1.84 (1.0-4.6) Absolute Monos (auto) 0.62 (0.0-1.3) Lymphocytes % 24.6 (24.0-44.0) % Monocytes % 8.3 (0.0-12.0) % Eosinophils % 1.3 (0.00-5.0) % Basophils % 0.1 (0.0-0.4) % Absolute Granulocytes 4.92 (1.4-6.9) Basophils # 0.01 (0-0.4) PT (9.4-12.5) SECONDS INR (0.8-3.0) Sodium (137-145) mmol/L Potassium (3.5-5.1) mmol/L Chloride (98-107) mmol/L Carbon Dioxide (22-30) mmol/L Anion Gap (5-15) MEQ/L BUN (9-20) mg/dL Creatinine (0.66-1.25) mg/dL Estimated GFR ML/MIN Glucose (74-106) mg/dL Calcium (8.4-10.2) mg/dL Magnesium (1.6-2.3) mg/dL Total Bilirubin (0.2-1.3) mg/dL AST (17-59) U/L ALT (0-50) U/L Alkaline Phosphatase (38-126) U/L Troponin I (0.000-0.034) ng/mL NT-Pro-B Natriuret Pep (0-1800) pg/mL Serum Total Protein (6.3-8.2) g/dL Albumin (3.5-5.0) g/dL - Progress Progress: improved Progress Note: 02/20/21 21:29 CAT scan of the head without contrast shows no acute intracranial abnormality. Counseled pt/family regarding: lab results, diagnosis, need for follow-up, rad results - Departure Departure Disposition: Home Clinical Impression: Hypertensive urgency Condition: Stable Critical Care Time: Yes Critical Care Time(excluding separately billable procedures): Critical 30-74 mins (30 minutes) Referrals: GM ZAPIEN [Primary Care Provider] - Follow up/PCP as directed Additional Instructions: Drink plenty fluids. Take your blood pressure medication tonight. Call your primary care doctor tomorrow morning to make arrangements for further management.
[2021-02-20] MEDS ORDERED: VASOTEC I.V. 2.5 MG IV ONE ×4 (20:12→21:33)
[2021-02-20] MEDS ORDERED: Zofran 4 MG/2 ML VIAL ONE (20:16)
[2021-02-20] MEDS ORDERED: MORPHINE SULFATE 2 MG INJ ONE (20:16)
[2021-02-20 20:30] LABS: Absolute Neutrophil Ct (ANC) 4.92 (1.4-6.9); Basophil (Absolute #) 0.01 (0-0.4); Eosinophil % 1.3 % (0.00-5.0); Hematocrit 41.3 % (42-50); Hemoglobin 14.3 gm/dl (12.5-18.0); Lymphocyte (Absolute #) 1.84 (1.0-4.6); Lymphocytes % 24.6 % (24.0-44.0); Mean Cell Volume 96.5 fl (78-100); Mean Corpuscular Hemoglobin 33.4 pg (26-32); Mean Corpuscular Hgb Concent. 34.6 g/dl (32-36); Mean Platelet Volume 9.5 fl (7.5-11.0); Monocyte (Absolute #) 0.62 (0.0-1.3); Monocytes % 8.3 % (0.0-12.0); Neutrophil % 65.7 % (36.0-66.0); Platelet Count 197 K/mm3 (150-450); Red Blood Count 4.28 M/mm3 (4.1-5.6); Red Cell Distribution Width 11.7 % (11.5-14.0); White Blood Count 7.5 K/mm3 (4.0-10.5)
[2021-02-20 20:44] LABS: INR 1.01 (0.8-3.0); PROTIME 11.9 SECONDS (9.4-12.5)
[2021-02-20 20:57] LABS: ALBUMIN 4.3 g/dL (3.5-5.0); ALKALINE PHOSPHATASE 74 U/L (38-126); ANION GAP 10.7 MEQ/L (5-15); BLOOD UREA NITROGEN 15 mg/dL (9-20); CHLORIDE 92 mmol/L (98-107); Calcium 9.1 mg/dL (8.4-10.2); Carbon Dioxide 32 mmol/L (22-30); Creatinine 1 1.17 mg/dL (0.66-1.25); EST GLOMERULAR FILTRATION RATE > 60.0 ML/MIN; Glucose 102 mg/dL (74-106); MAGNESIUM 2.1 mg/dL (1.6-2.3); NT PRO BNP 324 pg/mL (0-1800); SGOT/AST 25 U/L (17-59); SGPT/ALT 10 U/L (0-50); SODIUM 132 mmol/L (137-145); Total Protein 7.2 g/dL (6.3-8.2)
[2021-02-20 21:20] VITALS: BP 168/83; PULSE 60; O2SAT 98
--- NOTE | 2021-02-21 09:01 | XRAY ---
Indication: Headache and dizziness. Multiple contiguous axial images obtained through the head without contrast. Comparison: None Age-appropriate global atrophy, mild periventricular degenerative micro-ischemia bilaterally, and small focus of old infarct right periventricular white matter. No acute intracranial hemorrhage, abnormal extra-axial fluid collection, or mass effect. Fourth ventricle is midline without hydrocephalus. Bony calvarium intact. Visualized paranasal sinuses and mastoid air cells are clear. 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 Comment: Preliminary interpretation made by [facility]. No critical discrepancy.
== END 2021-02-20 21:51 | disposition home or self-care (01) ==
LOC: ED 19:55
DX: I16.0 Hypertensive urgency (principal); I10 Essential (primary) hypertension; R51.9 Headache, unspecified; R42 Dizziness and giddiness; E78.5 Hyperlipidemia, unspecified; Z79.899 Other long term (current) drug therapy
CPT/HCPCS: 36000; 36415; 70450; 80053; 83735; 83880; 84484; 85025; 85610; 93005; 93041; 94760; 96374; 96376; 99284; 99291; J2270; J2405

== ENCOUNTER 2021-04-09 22:41 | Inpatient (IN) | payer MEDICARE ==
[2021-04-09] MEDS ORDERED: solu-MEDROL 125 MG, Sterile H2O 10 ml 2 ML IV ONE ×2 (22:52)
[2021-04-09] MEDS ORDERED: Sterile H2O 10 ml IJ ONE (22:58)
[2021-04-09] MEDS ORDERED: Sodium Chloride 0.9% 1000 ML 1,000 ML ONE (22:59)
[2021-04-09] MEDS ORDERED: solu-MEDROL ONE (22:59)
[2021-04-09] MEDS ORDERED: Sodium Chloride 0.9% 1000 ML 1,000 ML IV SCH (23:00)
[2021-04-09 23:20] LABS: Absolute Neutrophil Ct (ANC) 7.05 (1.4-6.9); Basophil (Absolute #) 0.01 (0-0.4); Eosinophil % 4.3 % (0.00-5.0); Eosinophil (Absolute #) 0.36 (0-0.5); Hematocrit 35.1 % (42-50); Hemoglobin 12.3 gm/dl (12.5-18.0); Lymphocyte (Absolute #) 0.47 (1.0-4.6); Lymphocytes % 5.7 % (24.0-44.0); Monocyte (Absolute #) 0.39 (0.0-1.3); Monocytes % 4.7 % (0.0-12.0); Neutrophil % 85.2 % (36.0-66.0); Platelet Count 193 K/mm3 (150-450); Red Blood Count 3.62 M/mm3 (4.1-5.6); Red Cell Distribution Width 11.8 % (11.5-14.0); White Blood Count 8.3 K/mm3 (4.0-10.5)
[2021-04-09 23:28] LABS: INR 1.15 (0.8-3.0); PROTIME 13.6 SECONDS (9.4-12.5)
[2021-04-09 23:32] LABS: ALBUMIN 3.7 g/dL (3.5-5.0); ALKALINE PHOSPHATASE 66 U/L (38-126); ANION GAP 13.3 MEQ/L (5-15); BLOOD UREA NITROGEN 26 mg/dL (9-20); CHLORIDE 98 mmol/L (98-107); Calcium 8.9 mg/dL (8.4-10.2); Carbon Dioxide 24 mmol/L (22-30); Creatinine 1 1.12 mg/dL (0.66-1.25); EST GLOMERULAR FILTRATION RATE > 60.0 ML/MIN; Glucose 129 mg/dL (74-106); Potassium 4.5 mmol/L (3.5-5.1); SGOT/AST 46 U/L (17-59); SGPT/ALT 15 U/L (0-50); SODIUM 130 mmol/L (137-145)
[2021-04-09 23:33] LABS: Appearance CLEAR (CLEAR); Bacteria NONE SEEN /HPF (NEGATIVE); Bilirubin NEGATIVE (NEGATIVE); Blood NEGATIVE Ery/ul (0-5); Glucose NEGATIVE (NEGATIVE); Ketones NEGATIVE (NEGATIVE); Leukocyte Esterase NEGATIVE (NEGATIVE); Nitrite NEGATIVE (NEGATIVE); Protein,Urine Dip 30 (Negative); Specific Gravity 1.013 (1.005-1.025); Urobilinogen NEGATIVE mg/dL (0-1)
[2021-04-09 23:40] LABS: INFLUENZA A NEGATIVE (NEGATIVE); INFLUENZA B NEGATIVE (NEGATIVE)
[2021-04-09 23:41] LABS: COVID AG -BINAX NOW RAPID TEST NEGATIVE (NEGATIVE)
[2021-04-10 00:28] LABS: INFLUENZA A NEGATIVE (NEGATIVE); INFLUENZA B NEGATIVE (NEGATIVE); RESPIRATORY SYNCTIAL VIRUS NEGATIVE (Negative); SARS-CoV-2 Xpert Express NEGATIVE (NEGATIVE)
[2021-04-10] MEDS ORDERED: ROCEPHIN 1 Gm-D5w 50 ml Bag** 1 G/50 ML IVPB IV STA (01:02)
[2021-04-10] MEDS ORDERED: Zithromax 500 MG/ 250 ML NaCl Premix 500 MG/250 ML IVPB IV STA (01:05)
--- NOTE | 2021-04-10 01:11 | ERPHSYRPT ---
- History of Present Illness Time Seen by Provider: 04/09/21 22:50 Source: patient Exam Limitations: no limitations Patient Subjective Stated Complaint: pt states he has a cough, shortness of breath, and feels like he has swelling inhis throat for last 3 days. Triage Nursing Assessment: pt alert and oriented, answers questions approp. pt amblualtory with steady gait noted. skin warm and dry. frequent dry, nonproductive cough noted. lung sounds clear bilat. redness noted to throat. Physician History: Patient is a 85-year-old white male who presents with a complaint of cough for several days he also complains of a severe sore throat. He has been short of breath more recently. And had a fever to 104.6 at home treated with Tylenol prior to arrival according to the family. On arrival in the ER his O2 sat on room air was 84%. He has had a home Covid test which was negative. Has no known exposure and did have his Covid vaccine within the last 3 months. Timing/Duration: worse Cough Quality/Degree: dry cough Possible Cause: no prior episodes Modifying Factors: Improves With: coughing, oxygen Associated Symptoms: fever, cough, shortness of breath, sore throat Allergies/Adverse Reactions: No Known Drug Allergies Allergy (Verified 02/20/21 20:00) Home Medications: Aspirin 81 mg PO DAILY 12/19/14 [History] Losartan Potassium 50 mg [Cozaar 50 MG] 100 mg PO DAILY 08/19/16 [History] Pravastatin Sodium [Pravachol] 40 mg PO HS 06/21/18 [History] Tamsulosin HCl 0.4 mg [Flomax 0.4 MG] 0.4 mg PO DAILY 06/21/18 [History] Allopurinol 100 mg [Zyloprim 100 mg] 100 mg PO DAILY 02/20/21 [History] Donepezil HCl [Aricept] 5 mg PO DAILY 02/20/21 [History] Loratadine 10 mg [Claritin 10 mg] 10 mg PO DAILY 02/20/21 [History] Hx Tetanus, Diphtheria Vaccination/Date Given: Yes Hx Influenza Vaccination/Date Given: No Hx Pneumococcal Vaccination/Date Given: Yes Immunizations Up to Date: Yes Travel Risk - International Travel Have you traveled outside of the country in past 3 weeks: No - Coronavirus Screening Are you exhibiting any of the following symptoms?: Yes Symptoms: Fever, Cough: New Onset, Shortness of Breath Close contact with a COVID-19 positive Pt in past 14-21 Days: No - Vaccine Status Have you recieved a Covid-19 vaccination: 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 - Vaccination Dates Date of 2cond Vaccination (if applicable): 03/2020 - Review of Systems Constitutional: Fever, Weakness, No Chills Eyes: No Symptoms Ears, Nose, & Throat: No Symptoms, Throat Pain, Throat Swelling, Painful Swallowing Respiratory: Cough, Dyspnea, Dyspnea on Exertion ([place]) Cardiac: No Chest Pain, No Edema, No Syncope Abdominal/Gastrointestinal: No Abdominal Pain, No Nausea, No Vomiting, No Diarrhea Genitourinary Symptoms: No Dysuria Musculoskeletal: No Back Pain, No Neck Pain Skin: No Rash Neurological: No Dizziness, No Focal Weakness, No Sensory Changes Psychological: No Symptoms Endocrine: No Symptoms All Other Systems: Reviewed and Negative - Past Medical History Pertinent Past Medical History: Yes Neurological History: No Pertinent History, Other ENT History: No Pertinent History Cardiac History: High Cholesterol, Hypertension Respiratory History: No Pertinent History Endocrine Medical History: No Pertinent History Musculoskeletal History: Arthritis, Fractures GI Medical History: Pancreatitis History: No Pertinent History Psycho-Social History: No Pertinent History Male Reproductive Disorders: No Pertinent History Other Medical History: FRACTURE RIGHT ANKLE. erectile dysfunction, hypogonadism, neck pain, left eye injury,headaches, memory problems - Past Surgical History Past Surgical History: Yes Neuro Surgical History: No Pertinent History Cardiac: Cardiac Catheterization Respiratory: No Pertinent History Gastrointestinal: Appendectomy, Hernia Repair Genitourinary: No Pertinent History Musculoskeletal: Orthopedic Surgery Male Surgical History: No Pertinent History Other Surgical History: Fatty tumor removed on back, Right leg fracture - OR, colonoscopy, appy, hernia surgery, left finger - Social History Smoking Status: Never smoker Exposure to second hand smoke: No Drug Use: none Patient Lives Alone: Yes - Nursing Vital Signs Nursing Vital Signs: Initial Vital Signs Temperature 98.8 F 04/09/21 22:42 Pulse Rate 94 H 04/09/21 22:42 Respiratory Rate 24 04/09/21 22:42 Blood Pressure 123/64 04/09/21 22:42 O2 Sat by Pulse Oximetry 84 L 04/09/21 22:42 Pain Scale Pain Intensity 0 - Physical Exam General Appearance: mild distress, alert Eye Exam: PERRL/EOMI, eyes nml inspection Ears, Nose, Throat Exam: normal ENT inspection, TMs normal, moist mucous membranes, pharyngeal erythema Neck Exam: normal inspection, non-tender, supple, full range of motion Respiratory Exam: lungs clear, diminished breath sounds, No respiratory distress Cardiovascular Exam: regular rate/rhythm, normal heart sounds Gastrointestinal/Abdomen Exam: soft, No tenderness Back Exam: normal inspection, No CVA tenderness, No vertebral tenderness Extremity Exam: normal inspection, normal range of motion Neurologic Exam: alert, oriented x 3, cooperative, normal mood/affect, sensation nml, No motor deficits Skin Exam: normal color, warm, dry, No rash Lymphatic Exam: No adenopathy SpO2: 95 Ordered Tests: Active Orders 24 hr Category Date Time Status EKG-ER Only STAT Care 04/09/21 22:52 Active Oxygen-ED Only Nasal Cannula 4 lpm Care 04/09/21 22:52 Active Pulse Oximetry (ED) STAT Care 04/09/21 22:52 Active CHEST 1 VIEW (PORTABLE) Stat Exams 04/09/21 22:53 Taken CHEST WITH CONTRAST [CT] Stat Exams 04/10/21 00:26 Taken BLOOD CULTURE Stat Lab 04/09/21 23:15 Received BNP [NT PRO BNP] Stat Lab 04/09/21 23:20 Completed CBC W DIFF Stat Lab 04/09/21 23:14 Completed CMP Stat Lab 04/09/21 23:14 Completed COVID AG-BINAX NOW RAPID TEST Stat Lab 04/09/21 23:15 Completed D-DIMER QUANTITATIVE Stat Lab 04/09/21 23:20 Completed INFLUENZA A+B KYM Stat Lab 04/09/21 23:15 Completed Lactic Acid Stat Lab 04/09/21 23:12 Completed PROCALCITONIN Stat Lab 04/09/21 23:20 Completed PROTIME WITH INR Stat Lab 04/09/21 23:14 Completed TROPONIN Q3H Lab 04/09/21 23:20 Completed UA W/RFX UR CULTURE Stat Lab 04/09/21 23:15 Completed Medication Summary Generic Name Dose Route Start Last Admin Trade Name Freq PRN Reason Stop Dose Admin Sodium Chloride 1,000 mls @ 100 mls/hr 04/09/21 23:00 04/09/21 23:00 Sodium Chloride 0.9% 1000 Ml IV 05/09/21 22:59 100 mls/hr .Q10H EVELYN Administration Ceftriaxone Sodium/Dextrose 1 g in 50 mls @ 100 mls/hr 04/10/21 01:02 Rocephin 1 Gm-D5w 50 Ml Bag IV 04/10/21 01:31 STAT STA Azithromycin 500 mg in 250 mls @ 250 mls/hr 04/10/21 01:05 Zithromax 500 Mg/ 250 Ml Nacl Premix IV 04/10/21 02:04 STAT STA Discontinued Medications Generic Name Dose Route Start Last Admin Trade Name Hector PRN Reason Stop Dose Admin Methylprednisolone Sodium 0 mg 04/09/21 22:52 04/09/21 23:01 Succinate 125 mg/ Sterile IV 04/09/21 22:53 125 mg Water 2 ml STAT ONE Administration Methylprednisolone Sodium Succinate Confirm 04/09/21 22:59 Methylprednis Sod Succ 125 Mg/2 Ml Vial Administered 04/09/21 23:00 Dose 125 mg .ROUTE .STK-MED ONE Sterile Water Confirm 04/09/21 22:58 Water For Injection,Sterile 10 Ml Vial Administered 04/09/21 22:59 Dose 10 ml IJ .STK-MED ONE Lab/Rad Data: Laboratory Result Diagrams 04/09/21 23:14 04/09/21 23:14 Laboratory Results 04/09/21 04/09/21 04/09/21 Range/Units 23:49 23:20 23:20 WBC (4.0-10.5) K/mm3 RBC (4.1-5.6) M/mm3 Hgb (12.5-18.0) gm/dl Hct (42-50) % MCV (78-100) fl MCH (26-32) pg MCHC (32-36) g/dl RDW (11.5-14.0) % Plt Count (150-450) K/mm3 MPV (7.5-11.0) fl Gran % (36.0-66.0) % Eos # (Auto) (0-0.5) Absolute Lymphs (auto) (1.0-4.6) Absolute Monos (auto) (0.0-1.3) Lymphocytes % (24.0-44.0) % Monocytes % (0.0-12.0) % Eosinophils % (0.00-5.0) % Basophils % (0.0-0.4) % Absolute Granulocytes (1.4-6.9) Basophils # (0-0.4) PT (9.4-12.5) SECONDS INR (0.8-3.0) D-Dimer 1491 H* (215-500) ng/mL Sodium (137-145) mmol/L Potassium (3.5-5.1) mmol/L Chloride (98-107) mmol/L Carbon Dioxide (22-30) mmol/L Anion Gap (5-15) MEQ/L BUN (9-20) mg/dL Creatinine (0.66-1.25) mg/dL Estimated GFR ML/MIN Glucose (74-106) mg/dL Lactic Acid (0.4-2.0) Calcium (8.4-10.2) mg/dL Total Bilirubin (0.2-1.3) mg/dL AST (17-59) U/L ALT (0-50) U/L Alkaline Phosphatase (38-126) U/L Troponin I 0.024 (0.000-0.034) ng/mL NT-Pro-B Natriuret Pep (0-1800) pg/mL Serum Total Protein (6.3-8.2) g/dL Albumin (3.5-5.0) g/dL Procalcitonin (0.030-0.080) ng/mL Urine Color (YELLOW) Urine Appearance (CLEAR) Urine pH (5-6) Ur Specific [place] (1.005-1.025) Urine Protein (Negative) Urine Ketones (NEGATIVE) Urine Blood (0-5) Rodney/ul Urine Nitrite (NEGATIVE) Urine Bilirubin (NEGATIVE) Urine Urobilinogen (0-1) mg/dL Ur Leukocyte Esterase (NEGATIVE) Urine WBC (Auto) (0-5) /HPF Urine RBC (Auto) (0-2) /HPF U Epithel Cells (Auto) (FEW) /HPF Urine Bacteria (Auto) (NEGATIVE) /HPF Urine Culture Reflexed (NO) Urine Glucose (NEGATIVE) mg/dL Influenza Type A Ag NEGATIVE (NEGATIVE) Influenza Type B Ag NEGATIVE (NEGATIVE) RSV (PCR) NEGATIVE (Negative) SARS-CoV-2 (PCR) NEGATIVE (NEGATIVE) SARS-CoV-2 Ag (Rapid) (NEGATIVE) Group A Strep Antibody (NEGATIVE) 04/09/21 04/09/21 04/09/21 Range/Units 23:20 23:20 23:15 WBC (4.0-10.5) K/mm3 RBC (4.1-5.6) M/mm3 Hgb (12.5-18.0) gm/dl Hct (42-50) % MCV (78-100) fl MCH (26-32) pg MCHC (32-36) g/dl RDW (11.5-14.0) % Plt Count (150-450) K/mm3 MPV (7.5-11.0) fl Gran % (36.0-66.0) % Eos # (Auto) (0-0.5) Absolute Lymphs (auto) (1.0-4.6) Absolute Monos (auto) (0.0-1.3) Lymphocytes % (24.0-44.0) % Monocytes % (0.0-12.0) % Eosinophils % (0.00-5.0) % Basophils % (0.0-0.4) % Absolute Granulocytes (1.4-6.9) Basophils # (0-0.4) PT (9.4-12.5) SECONDS INR (0.8-3.0) D-Dimer (215-500) ng/mL Sodium (137-145) mmol/L Potassium (3.5-5.1) mmol/L Chloride (98-107) mmol/L Carbon Dioxide (22-30) mmol/L Anion Gap (5-15) MEQ/L BUN (9-20) mg/dL Creatinine (0.66-1.25) mg/dL Estimated GFR ML/MIN Glucose (74-106) mg/dL Lactic Acid (0.4-2.0) Calcium (8.4-10.2) mg/dL Total Bilirubin (0.2-1.3) mg/dL AST (17-59) U/L ALT (0-50) U/L Alkaline Phosphatase (38-126) U/L Troponin I (0.000-0.034) ng/mL NT-Pro-B Natriuret Pep 549 (0-1800) pg/mL Serum Total Protein (6.3-8.2) g/dL Albumin (3.5-5.0) g/dL Procalcitonin 0.249 H (0.030-0.080) ng/mL Urine Color (YELLOW) Urine Appearance (CLEAR) Urine pH (5-6) Ur Specific [place] (1.005-1.025) Urine Protein (Negative) Urine Ketones (NEGATIVE) Urine Blood (0-5) Rodney/ul Urine Nitrite (NEGATIVE) Urine Bilirubin (NEGATIVE) Urine Urobilinogen (0-1) mg/dL Ur Leukocyte Esterase (NEGATIVE) Urine WBC (Auto) (0-5) /HPF Urine RBC (Auto) (0-2) /HPF U Epithel Cells (Auto) (FEW) /HPF Urine Bacteria (Auto) (NEGATIVE) /HPF Urine Culture Reflexed (NO) Urine Glucose (NEGATIVE) mg/dL Influenza Type A Ag (NEGATIVE) Influenza Type B Ag (NEGATIVE) RSV (PCR) (Negative) SARS-CoV-2 (PCR) (NEGATIVE) SARS-CoV-2 Ag (Rapid) NEGATIVE (NEGATIVE) Group A Strep Antibody (NEGATIVE) 04/09/21 04/09/21 04/09/21 Range/Units 23:15 23:15 23:15 WBC (4.0-10.5) K/mm3 RBC (4.1-5.6) M/mm3 Hgb (12.5-18.0) gm/dl Hct (42-50) % MCV (78-100) fl MCH (26-32) pg MCHC (32-36) g/dl RDW (11.5-14.0) % Plt Count (150-450) K/mm3 MPV (7.5-11.0) fl Gran % (36.0-66.0) % Eos # (Auto) (0-0.5) Absolute Lymphs (auto) (1.0-4.6) Absolute Monos (auto) (0.0-1.3) Lymphocytes % (24.0-44.0) % Monocytes % (0.0-12.0) % Eosinophils % (0.00-5.0) % Basophils % (0.0-0.4) % Absolute Granulocytes (1.4-6.9) Basophils # (0-0.4) PT (9.4-12.5) SECONDS INR (0.8-3.0) D-Dimer (215-500) ng/mL Sodium (137-145) mmol/L Potassium (3.5-5.1) mmol/L Chloride (98-107) mmol/L Carbon Dioxide (22-30) mmol/L Anion Gap (5-15) MEQ/L BUN (9-20) mg/dL Creatinine (0.66-1.25) mg/dL Estimated GFR ML/MIN Glucose (74-106) mg/dL Lactic Acid (0.4-2.0) Calcium (8.4-10.2) mg/dL Total Bilirubin (0.2-1.3) mg/dL AST (17-59) U/L ALT (0-50) U/L Alkaline Phosphatase (38-126) U/L Troponin I (0.000-0.034) ng/mL NT-Pro-B Natriuret Pep (0-1800) pg/mL Serum Total Protein (6.3-8.2) g/dL Albumin (3.5-5.0) g/dL Procalcitonin (0.030-0.080) ng/mL Urine Color YELLOW (YELLOW) Urine Appearance CLEAR (CLEAR) Urine pH 5.0 (5-6) Ur Specific [place] 1.013 (1.005-1.025) Urine Protein 30 (Negative) Urine Ketones NEGATIVE (NEGATIVE) Urine Blood NEGATIVE (0-5) Rodney/ul Urine Nitrite NEGATIVE (NEGATIVE) Urine Bilirubin NEGATIVE (NEGATIVE) Urine Urobilinogen NEGATIVE (0-1) mg/dL Ur Leukocyte Esterase NEGATIVE (NEGATIVE) Urine WBC (Auto) NONE (0-5) /HPF Urine RBC (Auto) NONE (0-2) /HPF U Epithel Cells (Auto) NONE (FEW) /HPF Urine Bacteria (Auto) NONE SEEN (NEGATIVE) /HPF Urine Culture Reflexed NO (NO) Urine Glucose NEGATIVE (NEGATIVE) mg/dL Influenza Type A Ag NEGATIVE (NEGATIVE) Influenza Type B Ag NEGATIVE (NEGATIVE) RSV (PCR) (Negative) SARS-CoV-2 (PCR) (NEGATIVE) SARS-CoV-2 Ag (Rapid) (NEGATIVE) Group A Strep Antibody NOT DETECTED (NEGATIVE) 04/09/21 04/09/21 04/09/21 Range/Units 23:14 23:14 23:14 WBC 8.3 (4.0-10.5) K/mm3 RBC 3.62 L (4.1-5.6) M/mm3 Hgb 12.3 L (12.5-18.0) gm/dl Hct 35.1 L (42-50) % MCV 97.0 (78-100) fl MCH 34.0 H (26-32) pg MCHC 35.0 (32-36) g/dl RDW 11.8 (11.5-14.0) % Plt Count 193 (150-450) K/mm3 MPV 10.0 (7.5-11.0) fl Gran % 85.2 H (36.0-66.0) % Eos # (Auto) 0.36 (0-0.5) Absolute Lymphs (auto) 0.47 L (1.0-4.6) Absolute Monos (auto) 0.39 (0.0-1.3) Lymphocytes % 5.7 L (24.0-44.0) % Monocytes % 4.7 (0.0-12.0) % Eosinophils % 4.3 (0.00-5.0) % Basophils % 0.1 (0.0-0.4) % Absolute Granulocytes 7.05 H (1.4-6.9) Basophils # 0.01 (0-0.4) PT 13.6 H (9.4-12.5) SECONDS INR 1.15 (0.8-3.0) D-Dimer (215-500) ng/mL Sodium 130 L (137-145) mmol/L Potassium 4.5 (3.5-5.1) mmol/L Chloride 98 (98-107) mmol/L Carbon Dioxide 24 (22-30) mmol/L Anion Gap 13.3 (5-15) MEQ/L BUN 26 H (9-20) mg/dL Creatinine 1.12 (0.66-1.25) mg/dL Estimated GFR > 60.0 ML/MIN Glucose 129 H (74-106) mg/dL Lactic Acid (0.4-2.0) Calcium 8.9 (8.4-10.2) mg/dL Total Bilirubin 1.20 (0.2-1.3) mg/dL AST 46 (17-59) U/L ALT 15 (0-50) U/L Alkaline Phosphatase 66 (38-126) U/L Troponin I (0.000-0.034) ng/mL NT-Pro-B Natriuret Pep (0-1800) pg/mL Serum Total Protein 7.0 (6.3-8.2) g/dL Albumin 3.7 (3.5-5.0) g/dL Procalcitonin (0.030-0.080) ng/mL Urine Color (YELLOW) Urine Appearance (CLEAR) Urine pH (5-6) Ur Specific [place] (1.005-1.025) Urine Protein (Negative) Urine Ketones (NEGATIVE) Urine Blood (0-5) Rodney/ul Urine Nitrite (NEGATIVE) Urine Bilirubin (NEGATIVE) Urine Urobilinogen (0-1) mg/dL Ur Leukocyte Esterase (NEGATIVE) Urine WBC (Auto) (0-5) /HPF Urine RBC (Auto) (0-2) /HPF U Epithel Cells (Auto) (FEW) /HPF Urine Bacteria (Auto) (NEGATIVE) /HPF Urine Culture Reflexed (NO) Urine Glucose (NEGATIVE) mg/dL Influenza Type A Ag (NEGATIVE) Influenza Type B Ag (NEGATIVE) RSV (PCR) (Negative) SARS-CoV-2 (PCR) (NEGATIVE) SARS-CoV-2 Ag (Rapid) (NEGATIVE) Group A Strep Antibody (NEGATIVE) 04/09/21 Range/Units 23:12 WBC (4.0-10.5) K/mm3 RBC (4.1-5.6) M/mm3 Hgb (12.5-18.0) gm/dl Hct (42-50) % MCV (78-100) fl MCH (26-32) pg MCHC (32-36) g/dl RDW (11.5-14.0) % Plt Count (150-450) K/mm3 MPV (7.5-11.0) fl Gran % (36.0-66.0) % Eos # (Auto) (0-0.5) Absolute Lymphs (auto) (1.0-4.6) Absolute Monos (auto) (0.0-1.3) Lymphocytes % (24.0-44.0) % Monocytes % (0.0-12.0) % Eosinophils % (0.00-5.0) % Basophils % (0.0-0.4) % Absolute Granulocytes (1.4-6.9) Basophils # (0-0.4) PT (9.4-12.5) SECONDS INR (0.8-3.0) D-Dimer (215-500) ng/mL Sodium (137-145) mmol/L Potassium (3.5-5.1) mmol/L Chloride (98-107) mmol/L Carbon Dioxide (22-30) mmol/L Anion Gap (5-15) MEQ/L BUN (9-20) mg/dL Creatinine (0.66-1.25) mg/dL Estimated GFR ML/MIN Glucose (74-106) mg/dL Lactic Acid 1.6 (0.4-2.0) Calcium (8.4-10.2) mg/dL Total Bilirubin (0.2-1.3) mg/dL AST (17-59) U/L ALT (0-50) U/L Alkaline Phosphatase (38-126) U/L Troponin I (0.000-0.034) ng/mL NT-Pro-B Natriuret Pep (0-1800) pg/mL Serum Total Protein (6.3-8.2) g/dL Albumin (3.5-5.0) g/dL Procalcitonin (0.030-0.080) ng/mL Urine Color (YELLOW) Urine Appearance (CLEAR) Urine pH (5-6) Ur Specific [place] (1.005-1.025) Urine Protein (Negative) Urine Ketones (NEGATIVE) Urine Blood (0-5) Rodney/ul Urine Nitrite (NEGATIVE) Urine Bilirubin (NEGATIVE) Urine Urobilinogen (0-1) mg/dL Ur Leukocyte Esterase (NEGATIVE) Urine WBC (Auto) (0-5) /HPF Urine RBC (Auto) (0-2) /HPF U Epithel Cells (Auto) (FEW) /HPF Urine Bacteria (Auto) (NEGATIVE) /HPF Urine Culture Reflexed (NO) Urine Glucose (NEGATIVE) mg/dL Influenza Type A Ag (NEGATIVE) Influenza Type B Ag (NEGATIVE) RSV (PCR) (Negative) SARS-CoV-2 (PCR) (NEGATIVE) SARS-CoV-2 Ag (Rapid) (NEGATIVE) Group A Strep Antibody (NEGATIVE) - Progress Progress: improved Air Movement: fair Blood Culture(s) Obtained: Yes Antibiotics given: Yes Discussed with : Ashu Will see patient in: hospital (full admit) - Departure Departure Disposition: In-patient Admission Clinical Impression: Acute pneumonitis Condition: Fair Critical Care Time: No Referrals: JESI NIEVES [Primary Care Provider] - Follow up/PCP as directed
[2021-04-10] MEDS ORDERED: Zofran 4 MG/2 ML VIAL IV PRN ×2 (01:12→03:13)
[2021-04-10] MEDS ORDERED: Ativan 2 MG/1 ML VIAL IV PRN (03:13)
[2021-04-10] MEDS ORDERED: REMDESIVIR 200 MG in Sodium Chloride 0.9% 250 ML 250 ML IV ONE (03:13)
[2021-04-10] MEDS ORDERED: Ativan 1 MG PO PRN (03:13)
[2021-04-10] MEDS ORDERED: TYLENOL EXTRA STRENGTH 500 MG PO PRN (03:13)
[2021-04-10] MEDS ORDERED: REMDESIVIR IV ONE (03:23)
[2021-04-10] MEDS ORDERED: Sodium Chloride 0.9% 250 ML 250 ML IV ONE (03:23)
[2021-04-10] MEDS: HYDROCODONE-CHLORPHEN ER SUSP PO PRN ×2 (03:48→15:53)
[2021-04-10 05:56] LABS: Absolute Neutrophil Ct (ANC) 4.94 (1.4-6.9); Basophil (Absolute #) 0.01 (0-0.4); Eosinophil (Absolute #) 0 (0-0.5); Hematocrit 34.5 % (42-50); Hemoglobin 12.2 gm/dl (12.5-18.0); Lymphocyte (Absolute #) 0.41 (1.0-4.6); Lymphocytes % 7.5 % (24.0-44.0); Mean Cell Volume 97.5 fl (78-100); Mean Corpuscular Hemoglobin 34.5 pg (26-32); Mean Corpuscular Hgb Concent. 35.4 g/dl (32-36); Mean Platelet Volume 9.9 fl (7.5-11.0); Monocyte (Absolute #) 0.08 (0.0-1.3); Monocytes % 1.5 % (0.0-12.0); Neutrophil % 90.8 % (36.0-66.0); Platelet Count 175 K/mm3 (150-450); Red Blood Count 3.54 M/mm3 (4.1-5.6); Red Cell Distribution Width 11.7 % (11.5-14.0); White Blood Count 5.4 K/mm3 (4.0-10.5)
--- NOTE | 2021-04-10 06:23 | XRAY ---
Indication: Short of breath, cough, and elevated d-dimer. Conventional contrast enhanced CTA chest performed using 100 cc Isovue 370 contrast. Two-dimensional sagittal and coronal reformatted images obtained. Additional 3-dimensional reformatted images obtained using a separate workstation. Comparison: December 18, 2012. Thoracic aorta demonstrates very minimal scattered arteriosclerotic calcifications without aneurysm/dissection. Normal patent branching right brachiocephalic, left common carotid, and left subclavian arteries. No pulmonary embolus. Heart is borderline enlarged. Slightly prominent small mediastinal/subcarinal lymph nodes, largest subcarinal measuring 1.4 x 2.1 cm. Lungs demonstrate new markedly diffuse bilateral patchy airspace disease with tiny bibasilar effusions. Bony thorax intact again with osteopenia and minimal degenerative changes throughout the spine. Limited upper abdomen again demonstrates 1.1 cm left lobe hepatic cyst and smaller 3 cm right adrenal gland mass. Impression: 1. CTA chest demonstrates very minimal arteriosclerotic aorta without aneurysm/dissection. 2. Negative pulmonary embolus. 3. Diffuse bilateral patchy airspace disease with tiny effusions. 4. New prominent mediastinal/subcarinal adenopathy presumed reactive. 5. New borderline cardiomegaly. 6. Again incidental small hepatic cyst and indeterminate right adrenal gland mass. Comment: Preliminary interpretation made by [facility]. No critical discrepancy.
--- NOTE | 2021-04-10 06:25 | XRAY ---
Indication: Cough. Hypoxia. Comparison: August 19, 2016. Portable chest demonstrates new diffuse bilateral patchy airspace disease without consolidation/large effusion. Heart not enlarged for AP portable technique. Bony thorax intact again with mild osteopenia and degenerative changes.
[2021-04-10] MEDS ORDERED: Sodium Chloride 0.9% 1000 ML 1,000 ML ONE (06:48)
[2021-04-10 07:31] LABS: ALBUMIN 3.2 g/dL (3.5-5.0); ALKALINE PHOSPHATASE 68 U/L (38-126); ANION GAP 13.4 MEQ/L (5-15); BLOOD UREA NITROGEN 23 mg/dL (9-20); CHLORIDE 101 mmol/L (98-107); Calcium 8.4 mg/dL (8.4-10.2); Carbon Dioxide 24 mmol/L (22-30); Creatinine 1 0.96 mg/dL (0.66-1.25); EST GLOMERULAR FILTRATION RATE > 60.0 ML/MIN; Glucose 177 mg/dL (74-106); Potassium 4.4 mmol/L (3.5-5.1); SGOT/AST 41 U/L (17-59); SGPT/ALT 15 U/L (0-50); SODIUM 134 mmol/L (137-145); Total Protein 6.2 g/dL (6.3-8.2)
[2021-04-10 07:43] LABS: Slide Review 1 YES
[2021-04-10] MEDS: OLUMIANT PO SCH (08:08)
[2021-04-10] MEDS: DECADRON 10MG INJ. IV SCH (08:08)
[2021-04-10] MEDS ORDERED: ENOXAPARIN SODIUM SQ SCH (10:00)
[2021-04-10] MEDS ORDERED: Zithromax 500 MG/ 250 ML NaCl Premix 500 MG/250 ML IVPB IV SCH (10:00)
[2021-04-10] MEDS ORDERED: NON-FORMULARY ITEM (Donepezil Hcl [Aricept] 5 MG Tablet) PO SCH (10:00)
[2021-04-10] MEDS ORDERED: ROCEPHIN 1 Gm-D5w 50 ml Bag** 1 G/50 ML IVPB IV SCH (10:00)
[2021-04-10] MEDS: Aricept 10 MG PO SCH (10:38)
[2021-04-10] MEDS: Flomax 0.4 MG PO SCH (10:38)
[2021-04-10] MEDS: CLARITIN 10 MG PO SCH (10:39)
[2021-04-10] MEDS: Cozaar 50 MG PO SCH (10:39)
[2021-04-10] MEDS: ZYLOPRIM 100 MG PO SCH (10:39)
[2021-04-10] MEDS: ZOCOR 20MG PO SCH (21:39)
[2021-04-10] MEDS: ROCEPHIN 1 Gm-D5w 50 ml Bag** 1 G/50 ML IVPB IV SCH (21:39)
[2021-04-10] MEDS: ENOXAPARIN SODIUM SQ SCH (21:39)
[2021-04-10] MEDS ORDERED: NON-FORMULARY ITEM (Pravastatin Sodium [Pravachol] 40 MG Tablet) PO SCH (22:00)
[2021-04-10] MEDS: Zithromax 500 MG/ 250 ML NaCl Premix 500 MG/250 ML IVPB IV SCH (22:28)
[2021-04-10] MEDS ORDERED: REMDESIVIR 100 MG in Sodium Chloride 0.9% 100 ML BAG 100 ML IV SCH (23:00)
[2021-04-11 05:03] LABS: Hematocrit 29.5 % (42-50); Hemoglobin 10.3 gm/dl (12.5-18.0); Mean Corpuscular Hemoglobin 34.2 pg (26-32); Mean Corpuscular Hgb Concent. 34.9 g/dl (32-36); Platelet Count 199 K/mm3 (150-450); Red Blood Count 3.01 M/mm3 (4.1-5.6); Red Cell Distribution Width 11.6 % (11.5-14.0); White Blood Count 9.8 K/mm3 (4.0-10.5)
--- NOTE | 2021-04-11 08:57 | XRAY ---
Indication: Pneumonia. Comparison: April 09, 2021. Portable chest demonstrates grossly stable diffuse bilateral airspace disease with new CT proven tiny bibasilar effusions. Heart not enlarged. Bony thorax intact again with osteopenia and degenerative changes.
--- NOTE | 2021-04-11 08:57 | HP ---
CHIEF COMPLAINT: Sore throat, shortness of breath and fever of 104F. HISTORY OF PRESENT ILLNESS: The patient is an 85-year-old white male patient who presented to the emergency room with complaints over the past several days of his throat getting more sore. He was found to have a fever of 104.6F at home and treated with Tylenol before arrival. In the emergency room initially, the patient's O2 saturation was noted to be 84%. He had already done a home COVID test which was negative. PAST MEDICAL/SURGICAL HISTORY: Significant for hypertension, hyperlipidemia and previous pancreatitis. He had a fracture of the right ankle. He had previous fatty tumor removed on his back, right leg fracture, colonoscopy, appendectomy, hernia surgery and left finger surgery. HOME MEDICATIONS: Currently include tamsulosin 0.4 mg a day, allopurinol 100 mg a day, benazepril 5 mg daily, loratadine 10 mg daily. ALLERGIES: NKDA. PHYSICAL EXAMINATION: The patient's vital signs in the emergency room revealed temperature 98.8F, pulse 94, respiratory rate 24 and blood pressure 122/64. O2 saturation was 84%. HEENT: Normocephalic, atraumatic. Pupils equal round reactive to light. He is wearing oxygen currently in just one nare. Oropharynx is pink and moist. NECK: Supple without lymphadenopathy, thyromegaly or JVD. CHEST: Essentially diminished air movement but clear otherwise. HEART: Regular rate and rhythm without murmurs, rubs or gallops. ABDOMEN: Soft. No palpable masses. EXTREMITIES: Without cyanosis, clubbing or edema. NEUROLOGIC: The patient appears to be alert and oriented x3 without any obvious focal deficits. He seems to be somewhat hazy on his history however. LAB DATA AND TESTS: The patient's laboratory studies in the emergency room revealed him to be negative for COVID, respiratory syncytial virus, influenza and strep. His INR was 1.15. His sugar was 129, BUN 26, creatinine 1.12. Electrolytes and liver enzymes were normal. He did have an elevated D-dimer and this was followed up with chest CT with pulmonary embolism protocol. UA was normal. Procalcitonin was 0.249. Pro-BNP level was 549. His troponin was mildly elevated. His white count was 8.3, hemoglobin 12.3 and PLT count 193,000. There did appear to be a left shift with 90.8% granulocytes. Lactic acid 1.2. The troponin 0.067. His CT angiography of the chest showed negative for pulmonary embolism, diffuse bilateral patchy airspace disease with tiny effusions and what appeared to be reactive subcarinal adenopathy. ASSESSMENT: A patient with a developing pneumonia. He was treated initially with Rocephin and Zithromax in the emergency room. Due to the appearance of the x-ray and high fever, the emergency room doctor was concerned about COVID despite being negative on two tests. We therefore placed on Remdesivir and Decadron initially. We will follow his procalcitonin levels, white blood cell count. He is being evaluated by pulmonary. He has been placed in reverse isolation however not in the COVID Unit. For the patient's elevated D-dimer, we placed him on 40 subcu of Lovenox twice daily and will continue to follow his D-dimer as well.
[2021-04-11] MEDS: Aricept 10 MG PO SCH (09:29)
[2021-04-11] MEDS: CLARITIN 10 MG PO SCH (09:32)
[2021-04-11] MEDS: Cozaar 50 MG PO SCH (09:33)
[2021-04-11] MEDS: ZYLOPRIM 100 MG PO SCH (09:34)
[2021-04-11] MEDS: Flomax 0.4 MG PO SCH (09:34)
[2021-04-11] MEDS: ENOXAPARIN SODIUM SQ SCH ×2 (09:34→21:46)
[2021-04-11] MEDS: DECADRON 10MG INJ. IV SCH (09:35)
[2021-04-11] MEDS: OLUMIANT PO SCH (09:36)
[2021-04-11] MEDS: Zithromax 500 MG/ 250 ML NaCl Premix 500 MG/250 ML IVPB IV SCH (21:46)
[2021-04-11] MEDS: ROCEPHIN 1 Gm-D5w 50 ml Bag** 1 G/50 ML IVPB IV SCH (21:47)
[2021-04-11] MEDS: ZOCOR 20MG PO SCH (21:47)
[2021-04-11] MEDS ORDERED: REMDESIVIR 100 MG in Sodium Chloride 0.9% 100 ML BAG 100 ML IV SCH (22:00)
[2021-04-12 05:11] LABS: Hematocrit 29.8 % (42-50); Hemoglobin 10.3 gm/dl (12.5-18.0); Mean Cell Volume 98.3 fl (78-100); Mean Corpuscular Hgb Concent. 34.6 g/dl (32-36); Mean Platelet Volume 9.9 fl (7.5-11.0); Platelet Count 209 K/mm3 (150-450); Red Blood Count 3.03 M/mm3 (4.1-5.6); Red Cell Distribution Width 11.9 % (11.5-14.0)
[2021-04-12 05:45] LABS: ALBUMIN 2.9 g/dL (3.5-5.0); ALKALINE PHOSPHATASE 53 U/L (38-126); ANION GAP 11.3 MEQ/L (5-15); BLOOD UREA NITROGEN 36 mg/dL (9-20); CHLORIDE 107 mmol/L (98-107); Calcium 8.3 mg/dL (8.4-10.2); Carbon Dioxide 21 mmol/L (22-30); Creatinine 1 1.06 mg/dL (0.66-1.25); EST GLOMERULAR FILTRATION RATE > 60.0 ML/MIN; Glucose 117 mg/dL (74-106); Potassium 3.7 mmol/L (3.5-5.1); SGOT/AST 48 U/L (17-59); SGPT/ALT 14 U/L (0-50); SODIUM 136 mmol/L (137-145); Total Protein 5.6 g/dL (6.3-8.2)
[2021-04-12 07:12] VITALS: BP 124/62; PULSE 58; O2SAT 91
[2021-04-12] MEDS: OLUMIANT PO SCH (08:45)
[2021-04-12] MEDS: DECADRON 10MG INJ. IV SCH (08:45)
[2021-04-12] MEDS: ENOXAPARIN SODIUM SQ SCH (08:45)
--- NOTE | 2021-04-12 08:55 | DS ---
DISCHARGE DIAGNOSIS: PNEUMONIA. HOSPITAL COURSE: The patient is an 85-year-old white male patient who presented to the emergency room with complaints of increasing shortness of breath and fever of 104F. He was evaluated in the emergency room and found to be negative for flu, COVID and respiratory syncytial virus although the x-ray looked, according to the emergency room doctor to be COVID-like. He was admitted to the hospital on Rocephin and Zithromax. He did have Remdesivir and Decadron as well. The patient's procalcitonin level did rise for a short while but was decreasing down to 0.656 on the day of 04/12/2021. The patient looked quite well on 04/11/2021 but we decided to do an additional day of medications and observation given his age. The patient by 04/12/2021 was feeling much better and felt to be ready for discharge home. His oxygen saturations were all above 90% even with ambulation. On the day of discharge showed his BUN 36 and creatinine 1.06. Liver enzymes were normal. His white count was 9.0, hemoglobin 10.3 and PLT count 209,000. Repeat x-ray had shown grossly stable diffuse bilateral airspace disease with tiny bibasilar effusions. The patient will be discharged home on his usual home medications in addition to Zithromax 500 mg for three more days and Augmentin 875 mg twice a day for seven days. He will have a follow up appointment in our office in one week.
== END 2021-04-12 09:59 | disposition home or self-care (01) | DRG 195 ==
LOC: ED 22:41 → MED SURG 04-10 02:07
PROVIDERS: ADMIT Family Medicine; ATTEND Family Medicine
DX: J18.9 Pneumonia, unspecified organism (principal); R50.9 Fever, unspecified; I10 Essential (primary) hypertension; E78.5 Hyperlipidemia, unspecified; R79.89 Other specified abnormal findings of blood chemistry; Z79.899 Other long term (current) drug therapy; Z20.828 Contact with and (suspected) exposure to other viral communicable diseases
CPT/HCPCS: 0241U; 36415; 71045; 71260; 80053; 81001; 82947; 83605; 83880; 84145; 84484; 85025; 85027; 85379; 85610; 87040; 87400; 87651; 93005; 94760; 96374; 99000; 99285; J0248; J0456; J0696; J1100; J1650; J2930; A9270-GY

== ENCOUNTER 2021-05-31 20:54 | Emergency (ER) | payer MEDICARE ==
--- NOTE | 2021-05-31 21:02 | ERPHSYRPT ---
- History of Present Illness Time Seen by Provider: 05/31/21 21:02 Source: patient, family Exam Limitations: no limitations Physician History: This is an 85-year-old white male patient of Dr. Zapien who has chronic blood pressure issues and recently had several changes in his blood pressure medication. Patient has been monitoring his blood pressure morning noon and night. Patient does have history of some memory issues chronically and has been doing his medication packs on his own. However, his daughter did state that he is missing some of his nighttime blood pressure medication. At 730 this evening, patient took his blood pressure and the blood pressure reading was systolic of 190 and his diastolic of 74. However, he did not take any of his blood pressure medications that were due. He has no headaches. He has no chest pain. He has no visual changes he has no shortness of breath and no abdominal pain. Timing/Duration: today Severity: mild Associated Symptoms: denies symptoms (To moderate) Allergies/Adverse Reactions: No Known Drug Allergies Allergy (Verified 05/31/21 21:05) Home Medications: Losartan Potassium 50 mg [Cozaar 50 MG] 50 mg PO DAILY 08/19/16 [History] Pravastatin Sodium [Pravachol] 40 mg PO HS 06/21/18 [History] Tamsulosin HCl 0.4 mg [Flomax 0.4 MG] 0.4 mg PO HS 06/21/18 [History] Allopurinol 100 mg [Zyloprim 100 mg] 100 mg PO HS 02/20/21 [History] Benzonatate 1 cap PO TID 05/31/21 [History] Carvedilol 6.25 mg [Coreg 6.25 MG] 1 tab PO BID 05/31/21 [History] Hx Tetanus, Diphtheria Vaccination/Date Given: Yes Hx Influenza Vaccination/Date Given: No Hx Pneumococcal Vaccination/Date Given: Yes Travel Risk - International Travel Have you traveled outside of the country in past 3 weeks: No - Coronavirus Screening Are you exhibiting any of the following symptoms?: No Close contact with a COVID-19 positive Pt in past 14-21 Days: No - Vaccine Status Have you recieved a Covid-19 vaccination: Yes Senior [employer]: [employer] - Vaccination Dates Date of 2cond Vaccination (if applicable): 03/2020 - Review of Systems Constitutional: No Symptoms Eyes: No Symptoms Ears, Nose, & Throat: No Symptoms Respiratory: No Symptoms Cardiac: No Symptoms Abdominal/Gastrointestinal: No Symptoms Genitourinary Symptoms: No Symptoms Musculoskeletal: No Symptoms Skin: No Symptoms Neurological: No Symptoms Psychological: No Symptoms Endocrine: No Symptoms Hematologic/Lymphatic: No Symptoms Immunological/Allergic: No Symptoms All Other Systems: Reviewed and Negative - Past Medical History Pertinent Past Medical History: Yes Neurological History: No Pertinent History, Other ENT History: No Pertinent History Cardiac History: High Cholesterol, Hypertension Respiratory History: No Pertinent History Endocrine Medical History: No Pertinent History Musculoskeletal History: Arthritis, Fractures GI Medical History: Pancreatitis History: No Pertinent History Psycho-Social History: No Pertinent History Male Reproductive Disorders: No Pertinent History Other Medical History: FRACTURE RIGHT ANKLE. erectile dysfunction, hypogonadism, neck pain, left eye injury,headaches, memory problems - Past Surgical History Past Surgical History: Yes Neuro Surgical History: No Pertinent History Cardiac: Cardiac Catheterization Respiratory: No Pertinent History Gastrointestinal: Appendectomy, Hernia Repair Genitourinary: No Pertinent History Musculoskeletal: Orthopedic Surgery Male Surgical History: No Pertinent History Other Surgical History: Fatty tumor removed on back, Right leg fracture - OR, colonoscopy, appy, hernia surgery, left finger - Social History Smoking Status: Never smoker Exposure to second hand smoke: No Drug Use: none Patient Lives Alone: Yes - Nursing Vital Signs Nursing Vital Signs: Initial Vital Signs Temperature 98 F 05/31/21 21:06 Pulse Rate 60 05/31/21 21:06 Respiratory Rate 20 05/31/21 21:06 O2 Sat by Pulse Oximetry 98 05/31/21 21:06 Pain Scale Pain Intensity 0 - Physical Exam General Appearance: no apparent distress, alert, anxiety Eye Exam: PERRL/EOMI, eyes nml inspection Ears, Nose, Throat Exam: normal ENT inspection, moist mucous membranes Neck Exam: normal inspection, non-tender, supple, full range of motion Respiratory Exam: normal breath sounds, lungs clear, airway intact, No chest tenderness, No respiratory distress Cardiovascular Exam: regular rate/rhythm, normal heart sounds, normal peripheral pulses Gastrointestinal/Abdomen Exam: soft, normal bowel sounds, No tenderness Rectal Exam: not done Back Exam: normal inspection, normal range of motion, No CVA tenderness, No vertebral tenderness Extremity Exam: normal inspection, normal range of motion, pelvis stable Neurologic Exam: alert, oriented x 3, cooperative, strap buckler II-XII nml as tested, normal mood/affect, nml cerebellar function, nml station & gait, sensation nml Skin Exam: normal color, warm, dry Lymphatic Exam: No adenopathy SpO2 Interpretation: normal O2 Delivery: Room Air - Course Nursing assessment & vital signs reviewed: Yes Ordered Tests: Medication Summary Discontinued Medications Generic Name Dose Route Start Last Admin Trade Name Hector PRN Reason Stop Dose Admin Carvedilol 6.25 mg 05/31/21 22:18 05/31/21 22:30 Carvedilol 6.25 Mg Tablet PO 05/31/21 22:19 6.25 mg STAT ONE Administration - Progress Progress: improved, re-examined Progress Note: 05/31/21 21:33 This patient has high blood pressure issues and there have been recent changes in his medication. It will take several weeks to normalize his blood pressure. He took his blood pressure after his dinner (7:30 PM) and then did not take any of his blood pressure medication. Had he done so, I believe his blood pressure readings would be in a more reasonable range. Therefore, what we will do is provide him with his 3 blood pressure medications that he he is supposed to take at night. We will observe him for period of time in the emergency room and monitor his blood pressure. If needed, then, we will intervene with an IV and intravenous antihypertensive agents. Counseled pt/family regarding: diagnosis, need for follow-up - Departure Departure Disposition: Home Clinical Impression: Hypertensive urgency, Hx of medication noncompliance Condition: Stable Critical Care Time: No Referrals: JESI ZAPIEN [Primary Care Provider] - Follow up/PCP as directed Additional Instructions: Take your medications as prescribed. Continue monitoring and 2-3 times a day daily log your systolic and diastolic blood pressure readings. Have your family members put together your pill pack for you. Call Dr. Zapien's office tomorrow to make arrangements for further evaluation and management and to make a follow- up appointment.
[2021-05-31] MEDS ORDERED: Coreg 6.25 MG PO ONE (22:18)
[2021-05-31 22:59] VITALS: PULSE 61
[2021-05-31 23:13] VITALS: BP 170/81; O2SAT 96
== END 2021-05-31 23:20 | disposition home or self-care (01) ==
LOC: ED 20:54
DX: I16.0 Hypertensive urgency (principal); I10 Essential (primary) hypertension; Z91.14 Patient's other noncompliance with medication regimen; E78.5 Hyperlipidemia, unspecified; Z79.899 Other long term (current) drug therapy
CPT/HCPCS: 99283; A9270-GY

== ENCOUNTER 2022-08-12 18:02 | Observation (INO) | payer MEDICARE ==
[2022-08-12] MEDS ORDERED: DUONEB 0.5-3 MG/3 ml Neb IH ONE ×2 (19:24→19:25)
--- NOTE | 2022-08-12 19:29 | ERPHSYRPT ---
- History of Present Illness Time Seen by Provider: 08/12/22 19:24 Source: patient, family Exam Limitations: no limitations Patient Subjective Stated Complaint: SOB Triage Nursing Assessment: Patient ambulated back to ED and transferred self to bed. Patient A+O X 3. Patient's skin pink, warm and dry. Patient complains of increased SOB and weakness today. Patient denies pain or discomfort. Patient's lungs clear a/p juarez. Patient denies cough. Physician History: pt is COPD pt seeing Dr. Talavera this week and has been on doxycycline and increased steroid to 20 per day but feels worse today. No prior CAD or procedures for that. is independent source of Hx in ER. CHest is with some wheezes Ht reg without M. Abd soft nontender. Ext without edema. Timing/Duration: day(s) Severity of Dyspnea-Max: moderate Severity of Dyspnea-Current: moderate Possible Cause: frequent episodes, chronic episodes Modifying Factors: Improves With: albuterol nebulizer Associated Symptoms: wheezing Allergies/Adverse Reactions: No Known Drug Allergies Allergy (Verified 08/12/22 18:07) Home Medications: Pravastatin Sodium [Pravachol] 40 mg PO HS 06/21/18 [History] Tamsulosin HCl 0.4 mg [Flomax 0.4 MG] 0.4 mg PO HS 06/21/18 [History] Allopurinol 100 mg [Zyloprim 100 mg] 100 mg PO HS 02/20/21 [History] Carvedilol [Coreg ] 1 tab PO BID 05/31/21 [History] Doxycycline Hyclate 100 mg [Vibramycin 100 MG] 100 mg PO BID 08/13/22 [History] Omeprazole 20 mg PO AC 08/13/22 [History] Prednisone 20 mg [Deltasone 20 mg] 20 mg PO DAILY 08/13/22 [History] Hx Tetanus, Diphtheria Vaccination/Date Given: Yes Hx Influenza Vaccination/Date Given: No Hx Pneumococcal Vaccination/Date Given: Yes Immunizations Up to Date: Yes Travel Risk - International Travel Have you traveled outside of the country in past 3 weeks: No - Coronavirus Screening Are you exhibiting any of the following symptoms?: No Close contact with a COVID-19 positive Pt in past 14-21 Days: No - Vaccine Status Have you recieved a Covid-19 vaccination: Yes 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 - Vaccination Dates Date of 2cond Vaccination (if applicable): 03/2020 - Review of Systems Constitutional: No Fever, No Chills Eyes: No Symptoms Ears, Nose, & Throat: No Symptoms Respiratory: Cough, Dyspnea Cardiac: No Chest Pain, No Edema, No Syncope Abdominal/Gastrointestinal: No Abdominal Pain, No Nausea, No Vomiting, No Diarrhea Genitourinary Symptoms: No Dysuria Musculoskeletal: No Back Pain, No Neck Pain Skin: No Symptoms, No Rash Neurological: No Dizziness, No Focal Weakness, No Sensory Changes Psychological: No Symptoms Endocrine: No Symptoms Hematologic/Lymphatic: No Symptoms Immunological/Allergic: No Symptoms All Other Systems: Reviewed and Negative - Past Medical History Pertinent Past Medical History: Yes Neurological History: No Pertinent History, Other ENT History: No Pertinent History Cardiac History: High Cholesterol, Hypertension Respiratory History: No Pertinent History Endocrine Medical History: No Pertinent History Musculoskeletal History: Arthritis, Fractures GI Medical History: Pancreatitis History: No Pertinent History Psycho-Social History: No Pertinent History Male Reproductive Disorders: No Pertinent History Other Medical History: FRACTURE RIGHT ANKLE. erectile dysfunction, hypogonadism, neck pain, left eye injury,headaches, memory problems - Past Surgical History Past Surgical History: Yes Neuro Surgical History: No Pertinent History Cardiac: Cardiac Catheterization Respiratory: No Pertinent History Gastrointestinal: Appendectomy, Hernia Repair Genitourinary: No Pertinent History Musculoskeletal: Orthopedic Surgery Male Surgical History: No Pertinent History Other Surgical History: Fatty tumor removed on back, Right leg fracture - OR, colonoscopy, appy, hernia surgery, left finger - Social History Smoking Status: Never smoker Exposure to second hand smoke: No Drug Use: none Patient Lives Alone: Yes - Nursing Vital Signs Nursing Vital Signs: Initial Vital Signs Temperature 98.3 F 08/12/22 18:07 Pulse Rate 103 H 08/12/22 18:07 Respiratory Rate 32 H 08/12/22 18:07 Blood Pressure 149/94 08/12/22 18:07 O2 Sat by Pulse Oximetry 91 L 08/12/22 18:07 Pain Scale Pain Intensity 0 - Physical Exam General Appearance: no apparent distress, alert Eye Exam: PERRL/EOMI Neck Exam: normal inspection, supple Respiratory Exam: airway intact, crackles/rales, wheezing Cardiovascular/Chest Exam: normal heart sounds, regular rate/rhythm Abdominal/Gastrointestinal Exam: soft, No tenderness, No distention, No mass Rectal Exam: deferred Extremity Exam: non-tender, normal range of motion, normal inspection, no calf tenderness, no pedal edema Peripheral Pulses Exam: carotid (R): 2+, carotid (L): 2+, femoral (R): 2+, femoral (L): 2+, dorsalis-pedis (R): 2+, dorsalis-pedis (L): 2+ Neurologic Exam: alert, oriented x 3, cooperative, 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, sensation nml, No motor deficits Skin Exam: normal color, warm, No dry SpO2 Interpretation: borderline oxygenation SpO2: 91 O2 Delivery: Nasal Cannula - Course Nursing assessment & vital signs reviewed: Yes EKG Interpreted by Me: Sinus Rhythm, Left [place] Deviation, Non-specific ST Ch anges - Radiology Exams Chest X-ray Interpretation: Reviewed by me, Teleradiologist Report, Infiltrates - CT Exams Chest CT Interpretation: Tele-radiologist Report, No PE, Other (pulmonary congestion) Ordered Tests: Active Orders 24 hr Category Date Time Status Marketing Planner STAT Care 08/12/22 19:38 Active EKG-ER Only STAT Care 08/12/22 19:36 Active IV Insertion STAT Care 08/12/22 19:36 Active Pulse Oximetry (ED) STAT Care 08/12/22 19:36 Active CHEST 1 VIEW (PORTABLE) Stat Exams 08/12/22 19:37 Completed CHEST WITH CONTRAST [CT] Stat Exams 08/12/22 23:17 Taken CBC W DIFF Stat Lab 08/12/22 18:50 Completed CMP Stat Lab 08/12/22 18:50 Completed D-DIMER QUANTITATIVE Stat Lab 08/12/22 18:50 Completed Lactic Acid Stat Lab 08/12/22 19:56 Completed Lactic Acid Stat Lab 08/12/22 21:59 Completed MAGNESIUM Stat Lab 08/12/22 18:50 Completed NT PRO BNPII Stat Lab 08/12/22 18:50 Completed TROPONIN Q4H Lab 08/12/22 18:50 Completed TROPONIN Q4H Lab 08/12/22 23:30 Completed TROPONIN Q4H Lab 08/13/22 03:45 Ordered UA W/RFX UR CULTURE Stat Lab 08/12/22 23:14 Completed Respiratory Therapy Assessment DAILY RT 08/12/22 19:25 Active Medication Summary Generic Name Dose Route Start Last Admin Trade Name Hector PRN Reason Stop Dose Admin Sodium Chloride 1,000 mls @ 50 mls/hr 08/12/22 19:45 08/12/22 19:48 Sodium Chloride 0.9% 1000 Ml IV 09/11/22 19:44 50 mls/hr .Q20H EVELYN Administration Discontinued Medications Generic Name Dose Route Start Last Admin Trade Name Hector PRN Reason Stop Dose Admin Albuterol/Ipratropium 3 ml 08/12/22 19:25 08/12/22 19:27 Ipratropium/Albuterol Sulfate 3 Ml Ampul.Neb IH 08/12/22 19:26 3 ml STAT ONE Administration Albuterol/Ipratropium Confirm 08/12/22 19:24 Ipratropium/Albuterol Sulfate 3 Ml Ampul.Neb Administered 08/12/22 19:25 Dose 3 ml IH .STK-MED ONE Methylprednisolone Sodium 0 mg 08/12/22 19:36 08/12/22 19:47 Succinate 125 mg/ Sterile IV 08/12/22 19:37 125 mg Water 2 ml STAT ONE Administration Ceftriaxone Sodium/Dextrose 1 g in 50 mls @ 100 mls/hr 08/12/22 19:36 08/12/22 20:42 Rocephin 1 Gm-D5w 50 Ml Bag IV 08/12/22 20:05 Infused STAT STA Infusion Ceftriaxone Sodium/Dextrose Confirm 08/12/22 19:46 Rocephin 1 Gm-D5w 50 Ml Bag Administered 08/12/22 19:47 Dose 1 g in 50 mls @ ud IV .STK-MED ONE Methylprednisolone Sodium Succinate Confirm 08/12/22 19:46 Methylprednis Sod Succ 125 Mg/2 Ml Vial Administered 08/12/22 19:47 Dose 125 mg .ROUTE .STK-MED ONE Sterile Water Confirm 08/12/22 19:46 Water For Injection,Sterile 10 Ml Vial Administered 08/12/22 19:47 Dose 10 ml IJ .STK-MED ONE Lab/Rad Data: Laboratory Result Diagrams 08/12/22 18:50 08/12/22 18:50 Laboratory Results 08/12/22 08/12/22 08/12/22 Range/Units 23:30 23:14 21:59 WBC (4.0-10.5) x10^3/uL RBC (4.1-5.6) x10^6/uL Hgb (12.5-18.0) g/dL Hct (42-50) % MCV (78-100) fL MCH (26-32) pg MCHC (32-36) g/dL RDW (11.5-14.0) % Plt Count (150-450) x10^3/uL MPV (7.5-11.0) fL Gran % (36.0-66.0) % Immature Gran % (Auto) (0.00-0.4) % Nucleat RBC Rel Count (0.00-0.1) % Eos # (Auto) (0-0.5) x10^3/uL Immature Gran # (Auto) (0.00-0.03) x10^3u/L Absolute Lymphs (auto) (1.0-4.6) x10^3/uL Absolute Monos (auto) (0.0-1.3) x10^3/uL Absolute Nucleated RBC (0.00-0.01) x10^3u/L Lymphocytes % (24.0-44.0) % Monocytes % (0.0-12.0) % Eosinophils % (0.00-5.0) % Basophils % (0.0-0.4) % Absolute Granulocytes (1.4-6.9) x10^3/uL Basophils # (0-0.4) x10^3/uL D-Dimer (0.0-0.50) mg/L Sodium (137-145) mmol/L Potassium (3.5-5.1) mmol/L Chloride (98-107) mmol/L Carbon Dioxide (22-30) mmol/L Anion Gap (5-15) MEQ/L BUN (9-20) mg/dL Creatinine (0.66-1.25) mg/dL Estimated GFR ML/MIN Glucose (74-106) mg/dL Lactic Acid 1.5 (0.4-2.0) Calcium (8.4-10.2) mg/dL Magnesium (1.6-2.3) mg/dL Total Bilirubin (0.2-1.3) mg/dL AST (17-59) U/L ALT (0-50) U/L Alkaline Phosphatase (38-126) U/L Troponin I < 0.012 (0.000-0.034) ng/mL NT-Pro-B Natriuret Pep (<300) pg/mL Serum Total Protein (6.3-8.2) g/dL Albumin (3.5-5.0) g/dL Urine Color Yellow (Yellow) Urine Appearance Clear (Clear) Urine pH 5.5 (4.6-8.0) Ur Specific [place] 1.015 (1.005-1.030) Urine Protein Negative (Negative) Urine Glucose (UA) Negative (Negative) mg/dL Urine Ketones Negative (Negative) Urine Blood Negative (Negative) Urine Nitrite Negative (Negative) Urine Bilirubin Negative (Negative) Urine Urobilinogen 0.2 (0.2) mg/dL Ur Leukocyte Esterase Negative (Negative) U Hyaline Cast (Auto) NONE SEEN (0-2) /LPF Urine Microscopic RBC 0-2 (0-5) /HPF Urine Microscopic WBC 0-2 (0-5) /HPF Ur Epithelial Cells None Seen (None Seen) /HPF Urine Bacteria None Seen (None Seen) /HPF Urine Culture Reflexed NO (NO) Influenza Type A Ag (NEGATIVE) Influenza Type B Ag (NEGATIVE) RSV (PCR) (NEGATIVE) SARS-CoV-2 (PCR) (NEGATIVE) 08/12/22 08/12/22 08/12/22 Range/Units 20:17 19:56 18:50 WBC (4.0-10.5) x10^3/uL RBC (4.1-5.6) x10^6/uL Hgb (12.5-18.0) g/dL Hct (42-50) % MCV (78-100) fL MCH (26-32) pg MCHC (32-36) g/dL RDW (11.5-14.0) % Plt Count (150-450) x10^3/uL MPV (7.5-11.0) fL Gran % (36.0-66.0) % Immature Gran % (Auto) (0.00-0.4) % Nucleat RBC Rel Count (0.00-0.1) % Eos # (Auto) (0-0.5) x10^3/uL Immature Gran # (Auto) (0.00-0.03) x10^3u/L Absolute Lymphs (auto) (1.0-4.6) x10^3/uL Absolute Monos (auto) (0.0-1.3) x10^3/uL Absolute Nucleated RBC (0.00-0.01) x10^3u/L Lymphocytes % (24.0-44.0) % Monocytes % (0.0-12.0) % Eosinophils % (0.00-5.0) % Basophils % (0.0-0.4) % Absolute Granulocytes (1.4-6.9) x10^3/uL Basophils # (0-0.4) x10^3/uL D-Dimer (0.0-0.50) mg/L Sodium (137-145) mmol/L Potassium (3.5-5.1) mmol/L Chloride (98-107) mmol/L Carbon Dioxide (22-30) mmol/L Anion Gap (5-15) MEQ/L BUN (9-20) mg/dL Creatinine (0.66-1.25) mg/dL Estimated GFR ML/MIN Glucose (74-106) mg/dL Lactic Acid 2.3 H (0.4-2.0) Calcium (8.4-10.2) mg/dL Magnesium 1.7 (1.6-2.3) mg/dL Total Bilirubin (0.2-1.3) mg/dL AST (17-59) U/L ALT (0-50) U/L Alkaline Phosphatase (38-126) U/L Troponin I (0.000-0.034) ng/mL NT-Pro-B Natriuret Pep 1570 (<300) pg/mL Serum Total Protein (6.3-8.2) g/dL Albumin (3.5-5.0) g/dL Urine Color (Yellow) Urine Appearance (Clear) Urine pH (4.6-8.0) Ur Specific [place] (1.005-1.030) Urine Protein (Negative) Urine Glucose (UA) (Negative) mg/dL Urine Ketones (Negative) Urine Blood (Negative) Urine Nitrite (Negative) Urine Bilirubin (Negative) Urine Urobilinogen (0.2) mg/dL Ur Leukocyte Esterase (Negative) U Hyaline Cast (Auto) (0-2) /LPF Urine Microscopic RBC (0-5) /HPF Urine Microscopic WBC (0-5) /HPF Ur Epithelial Cells (None Seen) /HPF Urine Bacteria (None Seen) /HPF Urine Culture Reflexed (NO) Influenza Type A Ag NEGATIVE (NEGATIVE) Influenza Type B Ag NEGATIVE (NEGATIVE) RSV (PCR) NEGATIVE (NEGATIVE) SARS-CoV-2 (PCR) NEGATIVE (NEGATIVE) 08/12/22 08/12/22 08/12/22 Range/Units 18:50 18:50 18:50 WBC (4.0-10.5) x10^3/uL RBC (4.1-5.6) x10^6/uL Hgb (12.5-18.0) g/dL Hct (42-50) % MCV (78-100) fL MCH (26-32) pg MCHC (32-36) g/dL RDW (11.5-14.0) % Plt Count (150-450) x10^3/uL MPV (7.5-11.0) fL Gran % (36.0-66.0) % Immature Gran % (Auto) (0.00-0.4) % Nucleat RBC Rel Count (0.00-0.1) % Eos # (Auto) (0-0.5) x10^3/uL Immature Gran # (Auto) (0.00-0.03) x10^3u/L Absolute Lymphs (auto) (1.0-4.6) x10^3/uL Absolute Monos (auto) (0.0-1.3) x10^3/uL Absolute Nucleated RBC (0.00-0.01) x10^3u/L Lymphocytes % (24.0-44.0) % Monocytes % (0.0-12.0) % Eosinophils % (0.00-5.0) % Basophils % (0.0-0.4) % Absolute Granulocytes (1.4-6.9) x10^3/uL Basophils # (0-0.4) x10^3/uL D-Dimer 0.56 H (0.0-0.50) mg/L Sodium 134 L (137-145) mmol/L Potassium 3.8 (3.5-5.1) mmol/L Chloride 93 L (98-107) mmol/L Carbon Dioxide 29 (22-30) mmol/L Anion Gap 15.8 H (5-15) MEQ/L BUN 20 (9-20) mg/dL Creatinine 1.13 (0.66-1.25) mg/dL Estimated GFR > 60.0 ML/MIN Glucose 113 H (74-106) mg/dL Lactic Acid (0.4-2.0) Calcium 9.5 (8.4-10.2) mg/dL Magnesium (1.6-2.3) mg/dL Total Bilirubin 0.90 (0.2-1.3) mg/dL AST 32 (17-59) U/L ALT 16 (0-50) U/L Alkaline Phosphatase 56 (38-126) U/L Troponin I < 0.012 (0.000-0.034) ng/mL NT-Pro-B Natriuret Pep (<300) pg/mL Serum Total Protein 7.9 (6.3-8.2) g/dL Albumin 4.2 (3.5-5.0) g/dL Urine Color (Yellow) Urine Appearance (Clear) Urine pH (4.6-8.0) Ur Specific [place] (1.005-1.030) Urine Protein (Negative) Urine Glucose (UA) (Negative) mg/dL Urine Ketones (Negative) Urine Blood (Negative) Urine Nitrite (Negative) Urine Bilirubin (Negative) Urine Urobilinogen (0.2) mg/dL Ur Leukocyte Esterase (Negative) U Hyaline Cast (Auto) (0-2) /LPF Urine Microscopic RBC (0-5) /HPF Urine Microscopic WBC (0-5) /HPF Ur Epithelial Cells (None Seen) /HPF Urine Bacteria (None Seen) /HPF Urine Culture Reflexed (NO) Influenza Type A Ag (NEGATIVE) Influenza Type B Ag (NEGATIVE) RSV (PCR) (NEGATIVE) SARS-CoV-2 (PCR) (NEGATIVE) 08/12/22 Range/Units 18:50 WBC 9.2 (4.0-10.5) x10^3/uL RBC 4.75 (4.1-5.6) x10^6/uL Hgb 16.1 (12.5-18.0) g/dL Hct 46.8 (42-50) % MCV 98.5 (78-100) fL MCH 33.9 H (26-32) pg MCHC 34.4 (32-36) g/dL RDW 12.1 (11.5-14.0) % Plt Count 224 (150-450) x10^3/uL MPV 10.4 (7.5-11.0) fL Gran % 81.2 H (36.0-66.0) % Immature Gran % (Auto) 1.5 H (0.00-0.4) % Nucleat RBC Rel Count 0.0 (0.00-0.1) % Eos # (Auto) 0.11 (0-0.5) x10^3/uL Immature Gran # (Auto) 0.14 H (0.00-0.03) x10^3u/L Absolute Lymphs (auto) 0.86 L (1.0-4.6) x10^3/uL Absolute Monos (auto) 0.60 (0.0-1.3) x10^3/uL Absolute Nucleated RBC 0.00 (0.00-0.01) x10^3u/L Lymphocytes % 9.3 L (24.0-44.0) % Monocytes % 6.5 (0.0-12.0) % Eosinophils % 1.2 (0.00-5.0) % Basophils % 0.3 (0.0-0.4) % Absolute Granulocytes 7.47 H (1.4-6.9) x10^3/uL Basophils # 0.03 (0-0.4) x10^3/uL D-Dimer (0.0-0.50) mg/L Sodium (137-145) mmol/L Potassium (3.5-5.1) mmol/L Chloride (98-107) mmol/L Carbon Dioxide (22-30) mmol/L Anion Gap (5-15) MEQ/L BUN (9-20) mg/dL Creatinine (0.66-1.25) mg/dL Estimated GFR ML/MIN Glucose (74-106) mg/dL Lactic Acid (0.4-2.0) Calcium (8.4-10.2) mg/dL Magnesium (1.6-2.3) mg/dL Total Bilirubin (0.2-1.3) mg/dL AST (17-59) U/L ALT (0-50) U/L Alkaline Phosphatase (38-126) U/L Troponin I (0.000-0.034) ng/mL NT-Pro-B Natriuret Pep (<300) pg/mL Serum Total Protein (6.3-8.2) g/dL Albumin (3.5-5.0) g/dL Urine Color (Yellow) Urine Appearance (Clear) Urine pH (4.6-8.0) Ur Specific [place] (1.005-1.030) Urine Protein (Negative) Urine Glucose (UA) (Negative) mg/dL Urine Ketones (Negative) Urine Blood (Negative) Urine Nitrite (Negative) Urine Bilirubin (Negative) Urine Urobilinogen (0.2) mg/dL Ur Leukocyte Esterase (Negative) U Hyaline Cast (Auto) (0-2) /LPF Urine Microscopic RBC (0-5) /HPF Urine Microscopic WBC (0-5) /HPF Ur Epithelial Cells (None Seen) /HPF Urine Bacteria (None Seen) /HPF Urine Culture Reflexed (NO) Influenza Type A Ag (NEGATIVE) Influenza Type B Ag (NEGATIVE) RSV (PCR) (NEGATIVE) SARS-CoV-2 (PCR) (NEGATIVE) - Progress Progress: improved, re-examined Air Movement: good Progress Note: 08/13/22 00:38 pts O2 sat dropped into the 80s and he has a new O2 requirement to maintain. 08/13/22 03:[address] Jasmine hospitalist and also discussed with family and all agree best for pt to be in on obs due to new O2 requirement and his CHF appearance on testing. discussed adding Lasix 40 daily as advised by Dr. Jasmine and pt agrees. Blood Culture(s) Obtained: No Antibiotics given: Yes Discussed with DrJose: Other (Dr. Jasmine) Will see patient in: hospital (observation) Counseled pt/family regarding: lab results, diagnosis, need for follow-up, rad results Medical Desision Making - Independent Historian Additional History obtained from: Spouse - Discussion of managment Care discussed with:: hospitalist Reviewed:: Test results, Need for additional workup Agreed on:: Treatment plan, need for follow-up, decision to admit, place in obs Will see patient: in hospital - Diagnostic Testing Diagnostic test were ordered, analyzed, and reviewed by me: Yes Radiological Interpretation: Reviewed by me - Risk of complications The pt has a mod risk of morbidity or mortality based on: Need for prescription drug management The pt has a high risk of morbidity or mortality based on: Decision regarding hospitilization or escalation of hosp level of care - Departure Departure Disposition: Observation Clinical Impression: Congestive heart failure, exacerbation COPD with new O2 requiremen Condition: Good Critical Care Time: No Referrals: JESI NIEVES [Primary Care Provider] - Follow up/PCP as directed Instructions: Heart Failure
[2022-08-12] MEDS ORDERED: solu-MEDROL 125 MG, Sterile H2O 10 ml 2 ML IV ONE ×2 (19:36)
[2022-08-12] MEDS ORDERED: ROCEPHIN 1 Gm-D5w 50 ml Bag** 1 G/50 ML IVPB IV STA (19:36)
[2022-08-12] MEDS ORDERED: Sodium Chloride 0.9% 1000 ML 1,000 ML IV SCH (19:45)
[2022-08-12] MEDS ORDERED: solu-MEDROL ONE (19:46)
[2022-08-12] MEDS ORDERED: Sterile H2O 10 ml IJ ONE (19:46)
[2022-08-12] MEDS ORDERED: ROCEPHIN 1 Gm-D5w 50 ml Bag** 1 G/50 ML IVPB IV ONE (19:46)
[2022-08-12] MEDS ORDERED: Sodium Chloride 0.9% 1000 ML 1,000 ML ONE (19:46)
[2022-08-12 19:50] LABS: ALBUMIN 4.2 g/dL (3.5-5.0); BLOOD UREA NITROGEN 20 mg/dL (9-20); CHLORIDE 93 mmol/L (98-107); Calcium 9.5 mg/dL (8.4-10.2); Carbon Dioxide 29 mmol/L (22-30); Creatinine 1 1.13 mg/dL (0.66-1.25); EST GLOMERULAR FILTRATION RATE > 60.0 ML/MIN; Glucose 113 mg/dL (74-106); Potassium 3.8 mmol/L (3.5-5.1); SGOT/AST 32 U/L (17-59); SGPT/ALT 16 U/L (0-50); SODIUM 134 mmol/L (137-145); Total Protein 7.9 g/dL (6.3-8.2)
[2022-08-12 19:51] LABS: ALKALINE PHOSPHATASE 56 U/L (38-126); ANION GAP 15.8 MEQ/L (5-15); Absolute Neutrophil Ct (ANC) 7.47 x10^3/uL (1.4-6.9); BASOPHIL % 0.3 % (0.0-0.4); Basophil (Absolute #) 0.03 x10^3/uL (0-0.4); Eosinophil % 1.2 % (0.00-5.0); Eosinophil (Absolute #) 0.11 x10^3/uL (0-0.5); Hematocrit 46.8 % (42-50); Hemoglobin 16.1 g/dL (12.5-18.0); IMMATURE GRAN # 0.14 x10^3u/L (0.00-0.03); IMMATURE GRAN % 1.5 % (0.00-0.4); Lymphocyte (Absolute #) 0.86 x10^3/uL (1.0-4.6); Lymphocytes % 9.3 % (24.0-44.0); Mean Cell Volume 98.5 fL (78-100); Mean Corpuscular Hemoglobin 33.9 pg (26-32); Mean Corpuscular Hgb Concent. 34.4 g/dL (32-36); Mean Platelet Volume 10.4 fL (7.5-11.0); Monocytes % 6.5 % (0.0-12.0); Neutrophil % 81.2 % (36.0-66.0); Platelet Count 224 x10^3/uL (150-450); Red Blood Count 4.75 x10^6/uL (4.1-5.6); Red Cell Distribution Width 12.1 % (11.5-14.0); White Blood Count 9.2 x10^3/uL (4.0-10.5)
[2022-08-12 20:05] LABS: MAGNESIUM 1.7 mg/dL (1.6-2.3)
[2022-08-12 20:56] LABS: INFLUENZA A NEGATIVE (NEGATIVE); INFLUENZA B NEGATIVE (NEGATIVE); RESPIRATORY SYNCTIAL VIRUS NEGATIVE (NEGATIVE); SARS-CoV-2 Xpert Express NEGATIVE (NEGATIVE)
--- NOTE | 2022-08-12 21:15 | XRAY ---
Indication: Short of breath. Pneumonia. Comparison: July 18, 2022 Portable chest demonstrates slight worsening diffuse bilateral patchy airspace disease again greatest left mid to lower lung. Heart not enlarged. Bony thorax intact.
[2022-08-12 23:23] LABS: Appearance Clear (Clear); Bacteria None Seen /HPF (None Seen); Bilirubin Negative (Negative); Blood Negative (Negative); Epithelial Cells None Seen /HPF (None Seen); Glucose, Urine Negative (Negative); Hyaline Casts NONE SEEN /LPF (0-2); Ketones Negative (Negative); Leukocyte Esterase Negative (Negative); Nitrite Negative (Negative); Ph 5.5 (4.6-8.0); Protein,Urine Dip Negative (Negative); RBC 0-2 /HPF (0-5); Specific Gravity 1.015 (1.005-1.030); Urobilinogen 0.2 mg/dL (0.2); WBC 0-2 /HPF (0-5)
[2022-08-12 23:31] LABS: ADD URINE CULTURE? NO (NO)
[2022-08-13] MEDS ORDERED: HUMALOG SQ PRN (03:38)
--- NOTE | 2022-08-13 03:45 | PCM.HP ---
History of Present Illness - Chief Complaint Chief Complaint: SOB History of Present Illness: is a 86 year old male with hx of COPD, HTN, HLP, GERD, Gout, BPH came in tonight with c/o worsening SOB. He saw his bottom bleacher this past week and his prednisone was increased from 10 to 20mg daily, and added Doxycycline. However, he did not feel any better. Denies cough, fever, chills, chest pain, nausea, vomiting or diarrhea. Came in to ER with SOB and hypoxia, placed on 3Ls NC O2. Admitted for COPD and possible CHF exacerbation. No previous hx of CHF, or CAD. BNP was 1570 in ER, CXR shows some vascular congestion The entirety of this visit is done via telemedicine The pt gave me verbal consent to have this telemedicine visit - Review of Systems Constitutional: No Symptoms Eyes: No Symptoms Ears, Nose, & Throat: No Symptoms Respiratory: Short Of Breath, Wheezing Cardiac: No Symptoms Abdominal/Gastrointestinal: No Symptoms Genitourinary Symptoms: No Symptoms Musculoskeletal: No Symptoms Skin: No Symptoms Neurological: No Symptoms Psychological: No Symptoms Endocrine: No Symptoms Hematologic/Lymphatic: No Symptoms Immunological/Allergic: No Symptoms Medications & Allergies Home Medications: Home Medication List Pravastatin Sodium [Pravachol] 40 mg PO HS 06/21/18 [History Confirmed 08/13/22] Tamsulosin HCl 0.4 mg [Flomax 0.4 MG] 0.4 mg PO HS 06/21/18 [History Confirmed 08/13/22] Allopurinol 100 mg [Zyloprim 100 mg] 100 mg PO HS 02/20/21 [History Confirmed 08/13/22] Carvedilol [Coreg ] 1 tab PO BID 05/31/21 [History Confirmed 08/13/22] Doxycycline Hyclate 100 mg [Vibramycin 100 MG] 100 mg PO BID 08/13/22 [History Confirmed 08/13/22] Omeprazole 20 mg PO AC 08/13/22 [History Confirmed 08/13/22] Prednisone 20 mg [Deltasone 20 mg] 20 mg PO DAILY 08/13/22 [History Confirmed 08/13/22] Allergies/Adverse Reactions: Allergies Allergy/AdvReac Type Severity Reaction Status Date / Time No Known Drug Allergies Allergy Verified 08/12/22 18:07 - Past Medical History Past Medical History: Yes Neurological History: No Pertinent History, Other ENT History: No Pertinent History Cardiac History: High Cholesterol, Hypertension Respiratory History: No Pertinent History Endocrine Medical History: No Pertinent History Musculoskelatal History: Arthritis, Fractures GI Medical History: Pancreatitis History: No Pertinent History Pyscho-Social History: No Pertinent History Male Reproductive Disorders: No Pertinent History Comment: FRACTURE RIGHT ANKLE. erectile dysfunction, hypogonadism, neck pain, left eye injury,headaches, memory problems - Past Surgical History Past Surgical History: Yes Neuro Surgical History: No Pertinent History Cardiac History: Cardiac Catheterization Respiratory Surgery: No Pertinent History GI Surgical History: Appendectomy, Hernia Repair Genitourinary Surgical Hx: No Pertinent History Musculskeletal Surgical Hx: Orthopedic Surgery Male Surgical History: No Pertinent History Other Surgical History: Fatty tumor removed on back, Right leg fracture - OR, colonoscopy, appy, hernia surgery, left finger - Social History Smoking Status: Never smoker Exposure to second hand smoke: No Alcohol: None Drug Use: none - Physical Exam Vital Signs: Vital Signs - 24 hr Temp Pulse Resp BP BP Pulse Ox 08/13/22 03:04 91 L 08/13/22 03:00 63 25 H 151/77 98 08/13/22 02:00 70 29 H 151/73 97 08/13/22 01:00 75 30 H 150/79 97 08/13/22 00:35 67 24 153/83 97 08/13/22 00:30 68 30 H 97 08/13/22 00:22 71 22 153/83 94 L 08/12/22 23:02 76 27 H 195/100 97 08/12/22 22:00 73 19 142/85 98 08/12/22 21:00 76 23 157/85 97 08/12/22 20:03 99 08/12/22 20:00 79 14 180/76 98 08/12/22 19:31 91 H 19 86 L 08/12/22 19:00 95 H 39 H 158/61 95 08/12/22 18:17 89 16 149/94 92 L 08/12/22 18:07 98.3 F 103 H 32 H 149/94 91 L General Appearance: no apparent distress Neurologic Exam: alert, oriented x 3, cooperative Eye Exam: PERRL/EOMI, eyes nml inspection Ears, Nose, Throat Exam: normal ENT inspection Neck Exam: normal inspection, supple, full range of motion Respiratory Exam: respiratory distress, diminished breath sounds, wheezing Cardiovascular Exam: regular rate/rhythm, normal heart sounds Gastrointestinal/Abdomen Exam: soft, normal bowel sounds Male Genitalia Exam: other (deferred) Rectal Exam: deferred Back Exam: normal inspection Extremity Exam: normal inspection, normal range of motion Skin Exam: normal color, warm Results - Labs Lab/Micro Results: Lab Results-Last 24 Hours 08/12/22 08/12/22 08/12/22 Range/Units 18:50 18:50 18:50 WBC 9.2 (4.0-10.5) x10^3/uL RBC 4.75 (4.1-5.6) x10^6/uL Hgb 16.1 (12.5-18.0) g/dL Hct 46.8 (42-50) % MCV 98.5 (78-100) fL MCH 33.9 H (26-32) pg MCHC 34.4 (32-36) g/dL RDW 12.1 (11.5-14.0) % Plt Count 224 (150-450) x10^3/uL MPV 10.4 (7.5-11.0) fL Gran % 81.2 H (36.0-66.0) % Immature Gran % (Auto) 1.5 H (0.00-0.4) % Nucleat RBC Rel Count 0.0 (0.00-0.1) % Eos # (Auto) 0.11 (0-0.5) x10^3/uL Immature Gran # (Auto) 0.14 H (0.00-0.03) x10^3u/L Absolute Lymphs (auto) 0.86 L (1.0-4.6) x10^3/uL Absolute Monos (auto) 0.60 (0.0-1.3) x10^3/uL Absolute Nucleated RBC 0.00 (0.00-0.01) x10^3u/L Lymphocytes % 9.3 L (24.0-44.0) % Monocytes % 6.5 (0.0-12.0) % Eosinophils % 1.2 (0.00-5.0) % Basophils % 0.3 (0.0-0.4) % Absolute Granulocytes 7.47 H (1.4-6.9) x10^3/uL Basophils # 0.03 (0-0.4) x10^3/uL D-Dimer 0.56 H (0.0-0.50) mg/L Sodium 134 L (137-145) mmol/L Potassium 3.8 (3.5-5.1) mmol/L Chloride 93 L (98-107) mmol/L Carbon Dioxide 29 (22-30) mmol/L Anion Gap 15.8 H (5-15) MEQ/L BUN 20 (9-20) mg/dL Creatinine 1.13 (0.66-1.25) mg/dL Estimated GFR > 60.0 ML/MIN Glucose 113 H (74-106) mg/dL Lactic Acid (0.4-2.0) Calcium 9.5 (8.4-10.2) mg/dL Magnesium (1.6-2.3) mg/dL Total Bilirubin 0.90 (0.2-1.3) mg/dL AST 32 (17-59) U/L ALT 16 (0-50) U/L Alkaline Phosphatase 56 (38-126) U/L Troponin I (0.000-0.034) ng/mL NT-Pro-B Natriuret Pep (<300) pg/mL Serum Total Protein 7.9 (6.3-8.2) g/dL Albumin 4.2 (3.5-5.0) g/dL Urine Color (Yellow) Urine Appearance (Clear) Urine pH (4.6-8.0) Ur Specific Glendo (1.005-1.030) Urine Protein (Negative) Urine Glucose (UA) (Negative) mg/dL Urine Ketones (Negative) Urine Blood (Negative) Urine Nitrite (Negative) Urine Bilirubin (Negative) Urine Urobilinogen (0.2) mg/dL Ur Leukocyte Esterase (Negative) U Hyaline Cast (Auto) (0-2) /LPF Urine Microscopic RBC (0-5) /HPF Urine Microscopic WBC (0-5) /HPF Ur Epithelial Cells (None Seen) /HPF Urine Bacteria (None Seen) /HPF Urine Culture Reflexed (NO) Influenza Type A Ag (NEGATIVE) Influenza Type B Ag (NEGATIVE) RSV (PCR) (NEGATIVE) SARS-CoV-2 (PCR) (NEGATIVE) 08/12/22 08/12/22 08/12/22 Range/Units 18:50 18:50 19:56 WBC (4.0-10.5) x10^3/uL RBC (4.1-5.6) x10^6/uL Hgb (12.5-18.0) g/dL Hct (42-50) % MCV (78-100) fL MCH (26-32) pg MCHC (32-36) g/dL RDW (11.5-14.0) % Plt Count (150-450) x10^3/uL MPV (7.5-11.0) fL Gran % (36.0-66.0) % Immature Gran % (Auto) (0.00-0.4) % Nucleat RBC Rel Count (0.00-0.1) % Eos # (Auto) (0-0.5) x10^3/uL Immature Gran # (Auto) (0.00-0.03) x10^3u/L Absolute Lymphs (auto) (1.0-4.6) x10^3/uL Absolute Monos (auto) (0.0-1.3) x10^3/uL Absolute Nucleated RBC (0.00-0.01) x10^3u/L Lymphocytes % (24.0-44.0) % Monocytes % (0.0-12.0) % Eosinophils % (0.00-5.0) % Basophils % (0.0-0.4) % Absolute Granulocytes (1.4-6.9) x10^3/uL Basophils # (0-0.4) x10^3/uL D-Dimer (0.0-0.50) mg/L Sodium (137-145) mmol/L Potassium (3.5-5.1) mmol/L Chloride (98-107) mmol/L Carbon Dioxide (22-30) mmol/L Anion Gap (5-15) MEQ/L BUN (9-20) mg/dL Creatinine (0.66-1.25) mg/dL Estimated GFR ML/MIN Glucose (74-106) mg/dL Lactic Acid 2.3 H (0.4-2.0) Calcium (8.4-10.2) mg/dL Magnesium 1.7 (1.6-2.3) mg/dL Total Bilirubin (0.2-1.3) mg/dL AST (17-59) U/L ALT (0-50) U/L Alkaline Phosphatase (38-126) U/L Troponin I < 0.012 (0.000-0.034) ng/mL NT-Pro-B Natriuret Pep 1570 (<300) pg/mL Serum Total Protein (6.3-8.2) g/dL Albumin (3.5-5.0) g/dL Urine Color (Yellow) Urine Appearance (Clear) Urine pH (4.6-8.0) Ur Specific Glendo (1.005-1.030) Urine Protein (Negative) Urine Glucose (UA) (Negative) mg/dL Urine Ketones (Negative) Urine Blood (Negative) Urine Nitrite (Negative) Urine Bilirubin (Negative) Urine Urobilinogen (0.2) mg/dL Ur Leukocyte Esterase (Negative) U Hyaline Cast (Auto) (0-2) /LPF Urine Microscopic RBC (0-5) /HPF Urine Microscopic WBC (0-5) /HPF Ur Epithelial Cells (None Seen) /HPF Urine Bacteria (None Seen) /HPF Urine Culture Reflexed (NO) Influenza Type A Ag (NEGATIVE) Influenza Type B Ag (NEGATIVE) RSV (PCR) (NEGATIVE) SARS-CoV-2 (PCR) (NEGATIVE) 08/12/22 08/12/22 08/12/22 Range/Units 20:17 21:59 23:14 WBC (4.0-10.5) x10^3/uL RBC (4.1-5.6) x10^6/uL Hgb (12.5-18.0) g/dL Hct (42-50) % MCV (78-100) fL MCH (26-32) pg MCHC (32-36) g/dL RDW (11.5-14.0) % Plt Count (150-450) x10^3/uL MPV (7.5-11.0) fL Gran % (36.0-66.0) % Immature Gran % (Auto) (0.00-0.4) % Nucleat RBC Rel Count (0.00-0.1) % Eos # (Auto) (0-0.5) x10^3/uL Immature Gran # (Auto) (0.00-0.03) x10^3u/L Absolute Lymphs (auto) (1.0-4.6) x10^3/uL Absolute Monos (auto) (0.0-1.3) x10^3/uL Absolute Nucleated RBC (0.00-0.01) x10^3u/L Lymphocytes % (24.0-44.0) % Monocytes % (0.0-12.0) % Eosinophils % (0.00-5.0) % Basophils % (0.0-0.4) % Absolute Granulocytes (1.4-6.9) x10^3/uL Basophils # (0-0.4) x10^3/uL D-Dimer (0.0-0.50) mg/L Sodium (137-145) mmol/L Potassium (3.5-5.1) mmol/L Chloride (98-107) mmol/L Carbon Dioxide (22-30) mmol/L Anion Gap (5-15) MEQ/L BUN (9-20) mg/dL Creatinine (0.66-1.25) mg/dL Estimated GFR ML/MIN Glucose (74-106) mg/dL Lactic Acid 1.5 (0.4-2.0) Calcium (8.4-10.2) mg/dL Magnesium (1.6-2.3) mg/dL Total Bilirubin (0.2-1.3) mg/dL AST (17-59) U/L ALT (0-50) U/L Alkaline Phosphatase (38-126) U/L Troponin I (0.000-0.034) ng/mL NT-Pro-B Natriuret Pep (<300) pg/mL Serum Total Protein (6.3-8.2) g/dL Albumin (3.5-5.0) g/dL Urine Color Yellow (Yellow) Urine Appearance Clear (Clear) Urine pH 5.5 (4.6-8.0) Ur Specific Glendo 1.015 (1.005-1.030) Urine Protein Negative (Negative) Urine Glucose (UA) Negative (Negative) mg/dL Urine Ketones Negative (Negative) Urine Blood Negative (Negative) Urine Nitrite Negative (Negative) Urine Bilirubin Negative (Negative) Urine Urobilinogen 0.2 (0.2) mg/dL Ur Leukocyte Esterase Negative (Negative) U Hyaline Cast (Auto) NONE SEEN (0-2) /LPF Urine Microscopic RBC 0-2 (0-5) /HPF Urine Microscopic WBC 0-2 (0-5) /HPF Ur Epithelial Cells None Seen (None Seen) /HPF Urine Bacteria None Seen (None Seen) /HPF Urine Culture Reflexed NO (NO) Influenza Type A Ag NEGATIVE (NEGATIVE) Influenza Type B Ag NEGATIVE (NEGATIVE) RSV (PCR) NEGATIVE (NEGATIVE) SARS-CoV-2 (PCR) NEGATIVE (NEGATIVE) 08/12/22 Range/Units 23:30 WBC (4.0-10.5) x10^3/uL RBC (4.1-5.6) x10^6/uL Hgb (12.5-18.0) g/dL Hct (42-50) % MCV (78-100) fL MCH (26-32) pg MCHC (32-36) g/dL RDW (11.5-14.0) % Plt Count (150-450) x10^3/uL MPV (7.5-11.0) fL Gran % (36.0-66.0) % Immature Gran % (Auto) (0.00-0.4) % Nucleat RBC Rel Count (0.00-0.1) % Eos # (Auto) (0-0.5) x10^3/uL Immature Gran # (Auto) (0.00-0.03) x10^3u/L Absolute Lymphs (auto) (1.0-4.6) x10^3/uL Absolute Monos (auto) (0.0-1.3) x10^3/uL Absolute Nucleated RBC (0.00-0.01) x10^3u/L Lymphocytes % (24.0-44.0) % Monocytes % (0.0-12.0) % Eosinophils % (0.00-5.0) % Basophils % (0.0-0.4) % Absolute Granulocytes (1.4-6.9) x10^3/uL Basophils # (0-0.4) x10^3/uL D-Dimer (0.0-0.50) mg/L Sodium (137-145) mmol/L Potassium (3.5-5.1) mmol/L Chloride (98-107) mmol/L Carbon Dioxide (22-30) mmol/L Anion Gap (5-15) MEQ/L BUN (9-20) mg/dL Creatinine (0.66-1.25) mg/dL Estimated GFR ML/MIN Glucose (74-106) mg/dL Lactic Acid (0.4-2.0) Calcium (8.4-10.2) mg/dL Magnesium (1.6-2.3) mg/dL Total Bilirubin (0.2-1.3) mg/dL AST (17-59) U/L ALT (0-50) U/L Alkaline Phosphatase (38-126) U/L Troponin I < 0.012 (0.000-0.034) ng/mL NT-Pro-B Natriuret Pep (<300) pg/mL Serum Total Protein (6.3-8.2) g/dL Albumin (3.5-5.0) g/dL Urine Color (Yellow) Urine Appearance (Clear) Urine pH (4.6-8.0) Ur Specific Glendo (1.005-1.030) Urine Protein (Negative) Urine Glucose (UA) (Negative) mg/dL Urine Ketones (Negative) Urine Blood (Negative) Urine Nitrite (Negative) Urine Bilirubin (Negative) Urine Urobilinogen (0.2) mg/dL Ur Leukocyte Esterase (Negative) U Hyaline Cast (Auto) (0-2) /LPF Urine Microscopic RBC (0-5) /HPF Urine Microscopic WBC (0-5) /HPF Ur Epithelial Cells (None Seen) /HPF Urine Bacteria (None Seen) /HPF Urine Culture Reflexed (NO) Influenza Type A Ag (NEGATIVE) Influenza Type B Ag (NEGATIVE) RSV (PCR) (NEGATIVE) SARS-CoV-2 (PCR) (NEGATIVE) - Radiology Impressions Radiology Exams & Impressions: Radiology Procedures Category Date Time Status CHEST 1 VIEW (PORTABLE) Stat Exams 08/12/22 19:37 Completed CHEST WITH CONTRAST [CT] Stat Exams 08/12/22 23:17 Taken - Other Procedures and Tests Respiratory Therapy 08/12/22 19:25 Respiratory Therapy Assessment DAILY Assessment/Plan (1) COPD exacerbation Current Visit: Yes Status: Acute Assessment & Plan: Came in SOB, needing 3Ls NC O2. CXR showing some vascular congestion, so some component of fluid overload as well. Solumedrol, Rocephin, BC x 2 sent. O2 p rotocol to keep O2 sat > 92%. [facility] prn Code(s): J44.1 - CHRONIC OBSTRUCTIVE PULMONARY DISEASE W (ACUTE) EXACERBATION (2) Congestive heart failure Current Visit: Yes Status: Acute Assessment & Plan: He has no hx of CHF, but BNP 1570, CXR showing some vascular congestion. May need Echo. Start Lasix 40mg daily. Daily weights, strict IN and OUT. Code(s): I50.9 - HEART FAILURE, UNSPECIFIED (3) HTN (hypertension) Current Visit: No Status: Acute Assessment & Plan: Resumed home BP meds. Monitor BP trend and make adjustment as needed Code(s): I10 - ESSENTIAL (PRIMARY) HYPERTENSION (4) Gout Current Visit: No Status: Acute Assessment & Plan: Resume Allopurinol 100mg daily Code(s): M10.9 - GOUT, UNSPECIFIED (5) BPH (benign prostatic hyperplasia) Current Visit: Yes Status: Acute Assessment & Plan: Resume Flomax Code(s): N40.0 - BENIGN PROSTATIC HYPERPLASIA WITHOUT LOWER URINRY TRACT SYMP (6) Hyperlipemia Current Visit: Yes Status: Acute Assessment & Plan: Resume statin Code(s): E78.5 - HYPERLIPIDEMIA, UNSPECIFIED
[2022-08-13 04:35] LABS: Hematocrit 39.2 % (42-50); Hemoglobin 13.6 g/dL (12.5-18.0); Mean Cell Volume 97.5 fL (78-100); Mean Corpuscular Hemoglobin 33.8 pg (26-32); Mean Corpuscular Hgb Concent. 34.7 g/dL (32-36); Platelet Count 181 x10^3/uL (150-450); Red Blood Count 4.02 x10^6/uL (4.1-5.6); Red Cell Distribution Width 11.9 % (11.5-14.0); White Blood Count 4.7 x10^3/uL (4.0-10.5)
[2022-08-13 04:48] LABS: ANION GAP 16.8 MEQ/L (5-15); BLOOD UREA NITROGEN 20 mg/dL (9-20); CHLORIDE 94 mmol/L (98-107); Calcium 8.9 mg/dL (8.4-10.2); Carbon Dioxide 22 mmol/L (22-30); Creatinine 1 0.96 mg/dL (0.66-1.25); EST GLOMERULAR FILTRATION RATE > 60.0 ML/MIN; Glucose 219 mg/dL (74-106); SODIUM 129 mmol/L (137-145)
[2022-08-13] MEDS ORDERED: PATEINT INSURANCE PROVIDED MED PO PRN (05:32)
--- NOTE | 2022-08-13 05:39 | XRAY ---
CLINICAL HISTORY:Elevated D dimer short of breath COMPARISON:CT chest dated 02/23/2022 and chest radiograph dated 07/18/2022. TECHNIQUE:Contiguous 3.[address] images of the chest were acquired with the administration of 80ml Isovue 370 intravenous contrast. Coronal and sagittal reconstructions were also obtained. FINDINGS: No enlarged supraclavicular lymph nodes are present. No actionable nodule is present in the imaged portion of the thyroid lobe lesions. Adequate opacification of pulmonary vasculature with no evidence of occlusion. Bilateral basal atelectatic bands with multiple bilateral ground glass opacities, more marked in the parahilar locations. Bilateral parenchymal veiling denoting congestion. Bilateral air bronchogram.No free or encysted pleural effusion.Calcification is noted in the coronary vessels.Heart size is increased and there is no pericardial effusion. Left mild pleural effusion noted.No pathologically enlarged axillary lymph node is identified.There is no definite mass lesion in the lung parenchyma or chest wall.Degenerative changes seen in the visualized spine no other bony abnormality is detected.The rest of scanned upper abdomen is unremarkable. IMPRESSION: Bilateral parenchymal atelectasis with bronchiectatic changes. No evidence of pulmonary vasculature abnormality. Findings impressive of pulmonary congestion, with cardiac etiology to be considerd. Enlarged cardiac size for further evaluation. Mild left pleural effusion. Electronically Signed by: Fabián Rick MD. (08/13/2022 00:34:39 PLANNING DIRECTOR)
[2022-08-13] MEDS ORDERED: DUONEB 0.5-3 MG/3 ml Neb IH SCH (07:00)
[2022-08-13] MEDS: DUONEB 0.5-3 MG/3 ml Neb IH SCH ×2 (07:53→19:37)
[2022-08-13] MEDS: Advair Hfa 115/21 Common canister IH SCH ×2 (07:56→19:37)
--- NOTE | 2022-08-13 09:45 | PCM.HP ---
History of Present Illness - Chief Complaint Chief Complaint: COPD Exacerbation, CHF History of Present Illness: is a 86 year old male. Medications & Allergies Home Medications: Home Medication List Pravastatin Sodium [Pravachol] 40 mg PO HS 06/21/18 [History Confirmed 08/13/22] Tamsulosin HCl 0.4 mg [Flomax 0.4 MG] 0.4 mg PO HS 06/21/18 [History Confirmed 08/13/22] Allopurinol 100 mg [Zyloprim 100 mg] 100 mg PO HS 02/20/21 [History Confirmed 08/13/22] Carvedilol [Coreg ] 1 tab PO BID 05/31/21 [History Confirmed 08/13/22] Doxycycline Hyclate 100 mg [Vibramycin 100 MG] 100 mg PO BID 08/13/22 [History Confirmed 08/13/22] Omeprazole 20 mg PO AC 08/13/22 [History Confirmed 08/13/22] Prednisone 20 mg [Deltasone 20 mg] 20 mg PO DAILY 08/13/22 [History Confirmed 08/13/22] Allergies/Adverse Reactions: Allergies Allergy/AdvReac Type Severity Reaction Status Date / Time No Known Drug Allergies Allergy Verified 08/12/22 18:07 - Past Medical History Past Medical History: Yes Neurological History: No Pertinent History ENT History: Cataracts Cardiac History: Congestive Heart Failure Respiratory History: CHF, COPD Endocrine Medical History: No Pertinent History Musculoskelatal History: No Pertinent History GI Medical History: No Pertinent History History: No Pertinent History Pyscho-Social History: No Pertinent History Male Reproductive Disorders: No Pertinent History Comment: FRACTURE RIGHT ANKLE. erectile dysfunction, hypogonadism, neck pain, left eye injury,headaches, memory problems - Past Surgical History Past Surgical History: Yes Neuro Surgical History: No Pertinent History Cardiac History: No Pertinent History Respiratory Surgery: No Pertinent History GI Surgical History: Appendectomy Genitourinary Surgical Hx: No Pertinent History Musculskeletal Surgical Hx: No Pertinent History Male Surgical History: No Pertinent History Other Surgical History: Fatty tumor removed on back, Right leg fracture - OR, colonoscopy, appy, hernia surgery, left finger - Social History Smoking Status: Never smoker Exposure to second hand smoke: No Alcohol: None Drug Use: none - Physical Exam Vital Signs: Vital Signs - 24 hr Temp Pulse Resp BP BP Pulse Ox 08/13/22 08:00 98.4 F 71 21 162/77 99 08/13/22 07:56 87 16 93 L 08/13/22 05:00 75 20 98 08/13/22 04:05 97.7 F 69 18 157/71 96 08/13/22 04:00 97.7 F 69 18 157/71 96 08/13/22 03:04 91 L 08/13/22 03:00 63 25 H 151/77 98 08/13/22 02:00 70 29 H 151/73 97 08/13/22 01:00 75 30 H 150/79 97 08/13/22 00:35 67 24 153/83 97 08/13/22 00:30 68 30 H 97 08/13/22 00:22 71 22 153/83 94 L 08/12/22 23:02 76 27 H 195/100 97 08/12/22 22:00 73 19 142/85 98 08/12/22 21:00 76 23 157/85 97 08/12/22 20:03 99 08/12/22 20:00 79 14 180/76 98 08/12/22 19:31 91 H 19 86 L 08/12/22 19:00 95 H 39 H 158/61 95 08/12/22 18:17 89 16 149/94 92 L 08/12/22 18:07 98.3 F 103 H 32 H 149/94 91 L Results - Labs Lab/Micro Results: Lab Results-Last 24 Hours 08/12/22 08/12/22 08/12/22 Range/Units 18:50 18:50 18:50 WBC 9.2 (4.0-10.5) x10^3/uL RBC 4.75 (4.1-5.6) x10^6/uL Hgb 16.1 (12.5-18.0) g/dL Hct 46.8 (42-50) % MCV 98.5 (78-100) fL MCH 33.9 H (26-32) pg MCHC 34.4 (32-36) g/dL RDW 12.1 (11.5-14.0) % Plt Count 224 (150-450) x10^3/uL MPV 10.4 (7.5-11.0) fL Gran % 81.2 H (36.0-66.0) % Immature Gran % (Auto) 1.5 H (0.00-0.4) % Nucleat RBC Rel Count 0.0 (0.00-0.1) % Eos # (Auto) 0.11 (0-0.5) x10^3/uL Immature Gran # (Auto) 0.14 H (0.00-0.03) x10^3u/L Absolute Lymphs (auto) 0.86 L (1.0-4.6) x10^3/uL Absolute Monos (auto) 0.60 (0.0-1.3) x10^3/uL Absolute Nucleated RBC 0.00 (0.00-0.01) x10^3u/L Lymphocytes % 9.3 L (24.0-44.0) % Monocytes % 6.5 (0.0-12.0) % Eosinophils % 1.2 (0.00-5.0) % Basophils % 0.3 (0.0-0.4) % Absolute Granulocytes 7.47 H (1.4-6.9) x10^3/uL Basophils # 0.03 (0-0.4) x10^3/uL D-Dimer 0.56 H (0.0-0.50) mg/L Sodium 134 L (137-145) mmol/L Potassium 3.8 (3.5-5.1) mmol/L Chloride 93 L (98-107) mmol/L Carbon Dioxide 29 (22-30) mmol/L Anion Gap 15.8 H (5-15) MEQ/L BUN 20 (9-20) mg/dL Creatinine 1.13 (0.66-1.25) mg/dL Estimated GFR > 60.0 ML/MIN Glucose 113 H (74-106) mg/dL POC Glucometer (74 to 106) mg/dL Lactic Acid (0.4-2.0) Calcium 9.5 (8.4-10.2) mg/dL Magnesium (1.6-2.3) mg/dL Total Bilirubin 0.90 (0.2-1.3) mg/dL AST 32 (17-59) U/L ALT 16 (0-50) U/L Alkaline Phosphatase 56 (38-126) U/L Troponin I (0.000-0.034) ng/mL NT-Pro-B Natriuret Pep (<300) pg/mL Serum Total Protein 7.9 (6.3-8.2) g/dL Albumin 4.2 (3.5-5.0) g/dL Urine Color (Yellow) Urine Appearance (Clear) Urine pH (4.6-8.0) Ur Specific [place] (1.005-1.030) Urine Protein (Negative) Urine Glucose (UA) (Negative) mg/dL Urine Ketones (Negative) Urine Blood (Negative) Urine Nitrite (Negative) Urine Bilirubin (Negative) Urine Urobilinogen (0.2) mg/dL Ur Leukocyte Esterase (Negative) U Hyaline Cast (Auto) (0-2) /LPF Urine Microscopic RBC (0-5) /HPF Urine Microscopic WBC (0-5) /HPF Ur Epithelial Cells (None Seen) /HPF Urine Bacteria (None Seen) /HPF Urine Culture Reflexed (NO) Influenza Type A Ag (NEGATIVE) Influenza Type B Ag (NEGATIVE) RSV (PCR) (NEGATIVE) SARS-CoV-2 (PCR) (NEGATIVE) 08/12/22 08/12/22 08/12/22 Range/Units 18:50 18:50 19:56 WBC (4.0-10.5) x10^3/uL RBC (4.1-5.6) x10^6/uL Hgb (12.5-18.0) g/dL Hct (42-50) % MCV (78-100) fL MCH (26-32) pg MCHC (32-36) g/dL RDW (11.5-14.0) % Plt Count (150-450) x10^3/uL MPV (7.5-11.0) fL Gran % (36.0-66.0) % Immature Gran % (Auto) (0.00-0.4) % Nucleat RBC Rel Count (0.00-0.1) % Eos # (Auto) (0-0.5) x10^3/uL Immature Gran # (Auto) (0.00-0.03) x10^3u/L Absolute Lymphs (auto) (1.0-4.6) x10^3/uL Absolute Monos (auto) (0.0-1.3) x10^3/uL Absolute Nucleated RBC (0.00-0.01) x10^3u/L Lymphocytes % (24.0-44.0) % Monocytes % (0.0-12.0) % Eosinophils % (0.00-5.0) % Basophils % (0.0-0.4) % Absolute Granulocytes (1.4-6.9) x10^3/uL Basophils # (0-0.4) x10^3/uL D-Dimer (0.0-0.50) mg/L Sodium (137-145) mmol/L Potassium (3.5-5.1) mmol/L Chloride (98-107) mmol/L Carbon Dioxide (22-30) mmol/L Anion Gap (5-15) MEQ/L BUN (9-20) mg/dL Creatinine (0.66-1.25) mg/dL Estimated GFR ML/MIN Glucose (74-106) mg/dL POC Glucometer (74 to 106) mg/dL Lactic Acid 2.3 H (0.4-2.0) Calcium (8.4-10.2) mg/dL Magnesium 1.7 (1.6-2.3) mg/dL Total Bilirubin (0.2-1.3) mg/dL AST (17-59) U/L ALT (0-50) U/L Alkaline Phosphatase (38-126) U/L Troponin I < 0.012 (0.000-0.034) ng/mL NT-Pro-B Natriuret Pep 1570 (<300) pg/mL Serum Total Protein (6.3-8.2) g/dL Albumin (3.5-5.0) g/dL Urine Color (Yellow) Urine Appearance (Clear) Urine pH (4.6-8.0) Ur Specific [place] (1.005-1.030) Urine Protein (Negative) Urine Glucose (UA) (Negative) mg/dL Urine Ketones (Negative) Urine Blood (Negative) Urine Nitrite (Negative) Urine Bilirubin (Negative) Urine Urobilinogen (0.2) mg/dL Ur Leukocyte Esterase (Negative) U Hyaline Cast (Auto) (0-2) /LPF Urine Microscopic RBC (0-5) /HPF Urine Microscopic WBC (0-5) /HPF Ur Epithelial Cells (None Seen) /HPF Urine Bacteria (None Seen) /HPF Urine Culture Reflexed (NO) Influenza Type A Ag (NEGATIVE) Influenza Type B Ag (NEGATIVE) RSV (PCR) (NEGATIVE) SARS-CoV-2 (PCR) (NEGATIVE) 08/12/22 08/12/22 08/12/22 Range/Units 20:17 21:59 23:14 WBC (4.0-10.5) x10^3/uL RBC (4.1-5.6) x10^6/uL Hgb (12.5-18.0) g/dL Hct (42-50) % MCV (78-100) fL MCH (26-32) pg MCHC (32-36) g/dL RDW (11.5-14.0) % Plt Count (150-450) x10^3/uL MPV (7.5-11.0) fL Gran % (36.0-66.0) % Immature Gran % (Auto) (0.00-0.4) % Nucleat RBC Rel Count (0.00-0.1) % Eos # (Auto) (0-0.5) x10^3/uL Immature Gran # (Auto) (0.00-0.03) x10^3u/L Absolute Lymphs (auto) (1.0-4.6) x10^3/uL Absolute Monos (auto) (0.0-1.3) x10^3/uL Absolute Nucleated RBC (0.00-0.01) x10^3u/L Lymphocytes % (24.0-44.0) % Monocytes % (0.0-12.0) % Eosinophils % (0.00-5.0) % Basophils % (0.0-0.4) % Absolute Granulocytes (1.4-6.9) x10^3/uL Basophils # (0-0.4) x10^3/uL D-Dimer (0.0-0.50) mg/L Sodium (137-145) mmol/L Potassium (3.5-5.1) mmol/L Chloride (98-107) mmol/L Carbon Dioxide (22-30) mmol/L Anion Gap (5-15) MEQ/L BUN (9-20) mg/dL Creatinine (0.66-1.25) mg/dL Estimated GFR ML/MIN Glucose (74-106) mg/dL POC Glucometer (74 to 106) mg/dL Lactic Acid 1.5 (0.4-2.0) Calcium (8.4-10.2) mg/dL Magnesium (1.6-2.3) mg/dL Total Bilirubin (0.2-1.3) mg/dL AST (17-59) U/L ALT (0-50) U/L Alkaline Phosphatase (38-126) U/L Troponin I (0.000-0.034) ng/mL NT-Pro-B Natriuret Pep (<300) pg/mL Serum Total Protein (6.3-8.2) g/dL Albumin (3.5-5.0) g/dL Urine Color Yellow (Yellow) Urine Appearance Clear (Clear) Urine pH 5.5 (4.6-8.0) Ur Specific [place] 1.015 (1.005-1.030) Urine Protein Negative (Negative) Urine Glucose (UA) Negative (Negative) mg/dL Urine Ketones Negative (Negative) Urine Blood Negative (Negative) Urine Nitrite Negative (Negative) Urine Bilirubin Negative (Negative) Urine Urobilinogen 0.2 (0.2) mg/dL Ur Leukocyte Esterase Negative (Negative) U Hyaline Cast (Auto) NONE SEEN (0-2) /LPF Urine Microscopic RBC 0-2 (0-5) /HPF Urine Microscopic WBC 0-2 (0-5) /HPF Ur Epithelial Cells None Seen (None Seen) /HPF Urine Bacteria None Seen (None Seen) /HPF Urine Culture Reflexed NO (NO) Influenza Type A Ag NEGATIVE (NEGATIVE) Influenza Type B Ag NEGATIVE (NEGATIVE) RSV (PCR) NEGATIVE (NEGATIVE) SARS-CoV-2 (PCR) NEGATIVE (NEGATIVE) 08/12/22 08/13/22 08/13/22 Range/Units 23:30 04:30 04:30 WBC 4.7 (4.0-10.5) x10^3/uL RBC 4.02 L (4.1-5.6) x10^6/uL Hgb 13.6 (12.5-18.0) g/dL Hct 39.2 L (42-50) % MCV 97.5 (78-100) fL MCH 33.8 H (26-32) pg MCHC 34.7 (32-36) g/dL RDW 11.9 (11.5-14.0) % Plt Count 181 (150-450) x10^3/uL MPV 10.0 (7.5-11.0) fL Gran % (36.0-66.0) % Immature Gran % (Auto) (0.00-0.4) % Nucleat RBC Rel Count (0.00-0.1) % Eos # (Auto) (0-0.5) x10^3/uL Immature Gran # (Auto) (0.00-0.03) x10^3u/L Absolute Lymphs (auto) (1.0-4.6) x10^3/uL Absolute Monos (auto) (0.0-1.3) x10^3/uL Absolute Nucleated RBC (0.00-0.01) x10^3u/L Lymphocytes % (24.0-44.0) % Monocytes % (0.0-12.0) % Eosinophils % (0.00-5.0) % Basophils % (0.0-0.4) % Absolute Granulocytes (1.4-6.9) x10^3/uL Basophils # (0-0.4) x10^3/uL D-Dimer (0.0-0.50) mg/L Sodium (137-145) mmol/L Potassium (3.5-5.1) mmol/L Chloride (98-107) mmol/L Carbon Dioxide (22-30) mmol/L Anion Gap (5-15) MEQ/L BUN (9-20) mg/dL Creatinine (0.66-1.25) mg/dL Estimated GFR ML/MIN Glucose (74-106) mg/dL POC Glucometer (74 to 106) mg/dL Lactic Acid (0.4-2.0) Calcium (8.4-10.2) mg/dL Magnesium (1.6-2.3) mg/dL Total Bilirubin (0.2-1.3) mg/dL AST (17-59) U/L ALT (0-50) U/L Alkaline Phosphatase (38-126) U/L Troponin I < 0.012 < 0.012 (0.000-0.034) ng/mL NT-Pro-B Natriuret Pep (<300) pg/mL Serum Total Protein (6.3-8.2) g/dL Albumin (3.5-5.0) g/dL Urine Color (Yellow) Urine Appearance (Clear) Urine pH (4.6-8.0) Ur Specific [place] (1.005-1.030) Urine Protein (Negative) Urine Glucose (UA) (Negative) mg/dL Urine Ketones (Negative) Urine Blood (Negative) Urine Nitrite (Negative) Urine Bilirubin (Negative) Urine Urobilinogen (0.2) mg/dL Ur Leukocyte Esterase (Negative) U Hyaline Cast (Auto) (0-2) /LPF Urine Microscopic RBC (0-5) /HPF Urine Microscopic WBC (0-5) /HPF Ur Epithelial Cells (None Seen) /HPF Urine Bacteria (None Seen) /HPF Urine Culture Reflexed (NO) Influenza Type A Ag (NEGATIVE) Influenza Type B Ag (NEGATIVE) RSV (PCR) (NEGATIVE) SARS-CoV-2 (PCR) (NEGATIVE) 08/13/22 08/13/22 Range/Units 04:30 07:27 WBC (4.0-10.5) x10^3/uL RBC (4.1-5.6) x10^6/uL Hgb (12.5-18.0) g/dL Hct (42-50) % MCV (78-100) fL MCH (26-32) pg MCHC (32-36) g/dL RDW (11.5-14.0) % Plt Count (150-450) x10^3/uL MPV (7.5-11.0) fL Gran % (36.0-66.0) % Immature Gran % (Auto) (0.00-0.4) % Nucleat RBC Rel Count (0.00-0.1) % Eos # (Auto) (0-0.5) x10^3/uL Immature Gran # (Auto) (0.00-0.03) x10^3u/L Absolute Lymphs (auto) (1.0-4.6) x10^3/uL Absolute Monos (auto) (0.0-1.3) x10^3/uL Absolute Nucleated RBC (0.00-0.01) x10^3u/L Lymphocytes % (24.0-44.0) % Monocytes % (0.0-12.0) % Eosinophils % (0.00-5.0) % Basophils % (0.0-0.4) % Absolute Granulocytes (1.4-6.9) x10^3/uL Basophils # (0-0.4) x10^3/uL D-Dimer (0.0-0.50) mg/L Sodium 129 L (137-145) mmol/L Potassium 4.0 (3.5-5.1) mmol/L Chloride 94 L (98-107) mmol/L Carbon Dioxide 22 (22-30) mmol/L Anion Gap 16.8 H (5-15) MEQ/L BUN 20 (9-20) mg/dL Creatinine 0.96 (0.66-1.25) mg/dL Estimated GFR > 60.0 ML/MIN Glucose 219 H (74-106) mg/dL POC Glucometer 163 H (74 to 106) mg/dL Lactic Acid (0.4-2.0) Calcium 8.9 (8.4-10.2) mg/dL Magnesium (1.6-2.3) mg/dL Total Bilirubin (0.2-1.3) mg/dL AST (17-59) U/L ALT (0-50) U/L Alkaline Phosphatase (38-126) U/L Troponin I (0.000-0.034) ng/mL NT-Pro-B Natriuret Pep (<300) pg/mL Serum Total Protein (6.3-8.2) g/dL Albumin (3.5-5.0) g/dL Urine Color (Yellow) Urine Appearance (Clear) Urine pH (4.6-8.0) Ur Specific [place] (1.005-1.030) Urine Protein (Negative) Urine Glucose (UA) (Negative) mg/dL Urine Ketones (Negative) Urine Blood (Negative) Urine Nitrite (Negative) Urine Bilirubin (Negative) Urine Urobilinogen (0.2) mg/dL Ur Leukocyte Esterase (Negative) U Hyaline Cast (Auto) (0-2) /LPF Urine Microscopic RBC (0-5) /HPF Urine Microscopic WBC (0-5) /HPF Ur Epithelial Cells (None Seen) /HPF Urine Bacteria (None Seen) /HPF Urine Culture Reflexed (NO) Influenza Type A Ag (NEGATIVE) Influenza Type B Ag (NEGATIVE) RSV (PCR) (NEGATIVE) SARS-CoV-2 (PCR) (NEGATIVE) Accuchecks Date 08/13/22 Time 08:16 - Radiology Impressions Radiology Exams & Impressions: Radiology Procedures Category Date Time Status CHEST 1 VIEW (PORTABLE) Stat Exams 08/12/22 19:37 Completed CHEST WITH CONTRAST [CT] Stat Exams 08/12/22 23:17 Completed - Other Procedures and Tests Respiratory Therapy 08/12/22 19:25 Respiratory Therapy Assessment DAILY 08/13/22 03:38 Oxygen Nasal Cannula 3 lpm Telemedicine Encounter - Telemedicine Encounter Telemedicine Encounter: The entirety of this encounter was performed via Telemedicine"
--- NOTE | 2022-08-13 09:48 | PCM.NOTE ---
Date and Time: 08/13/22945 Subjective Assessment: Feeling much better. No fevers. Will continue steroids for 5 days and continue doxycycline. Continue Lasix 40 once daily and ECHO as outpatient Will plan discharge today if satting well on room air: OBJECTIVE DATA Vital Signs: Vital Signs - 24 hr Temp Pulse Resp BP BP Pulse Ox 08/13/22 08:00 98.4 F 71 21 162/77 99 08/13/22 07:56 87 16 93 L 08/13/22 05:00 75 20 98 08/13/22 04:05 97.7 F 69 18 157/71 96 08/13/22 04:00 97.7 F 69 18 157/71 96 08/13/22 03:04 91 L 08/13/22 03:00 63 25 H 151/77 98 08/13/22 02:00 70 29 H 151/73 97 08/13/22 01:00 75 30 H 150/79 97 08/13/22 00:35 67 24 153/83 97 08/13/22 00:30 68 30 H 97 08/13/22 00:22 71 22 153/83 94 L 08/12/22 23:02 76 27 H 195/100 97 08/12/22 22:00 73 19 142/85 98 08/12/22 21:00 76 23 157/85 97 08/12/22 20:03 99 08/12/22 20:00 79 14 180/76 98 08/12/22 19:31 91 H 19 86 L 08/12/22 19:00 95 H 39 H 158/61 95 08/12/22 18:17 89 16 149/94 92 L 08/12/22 18:07 98.3 F 103 H 32 H 149/94 91 L Pain Assessment - Last Documented Pain Intensity 0 Intake and Output: Intake & Output 08/10/22 08/11/22 08/12/22 08/13/22 11:59 11:59 11:59 11:59 Output Total 500 Balance -500 Weight 70.3 kg Lab Results: Lab Results-Last 24 Hours 08/12/22 08/12/22 08/12/22 Range/Units 18:50 18:50 18:50 WBC 9.2 (4.0-10.5) x10^3/uL RBC 4.75 (4.1-5.6) x10^6/uL Hgb 16.1 (12.5-18.0) g/dL Hct 46.8 (42-50) % MCV 98.5 (78-100) fL MCH 33.9 H (26-32) pg MCHC 34.4 (32-36) g/dL RDW 12.1 (11.5-14.0) % Plt Count 224 (150-450) x10^3/uL MPV 10.4 (7.5-11.0) fL Gran % 81.2 H (36.0-66.0) % Immature Gran % (Auto) 1.5 H (0.00-0.4) % Nucleat RBC Rel Count 0.0 (0.00-0.1) % Eos # (Auto) 0.11 (0-0.5) x10^3/uL Immature Gran # (Auto) 0.14 H (0.00-0.03) x10^3u/L Absolute Lymphs (auto) 0.86 L (1.0-4.6) x10^3/uL Absolute Monos (auto) 0.60 (0.0-1.3) x10^3/uL Absolute Nucleated RBC 0.00 (0.00-0.01) x10^3u/L Lymphocytes % 9.3 L (24.0-44.0) % Monocytes % 6.5 (0.0-12.0) % Eosinophils % 1.2 (0.00-5.0) % Basophils % 0.3 (0.0-0.4) % Absolute Granulocytes 7.47 H (1.4-6.9) x10^3/uL Basophils # 0.03 (0-0.4) x10^3/uL D-Dimer 0.56 H (0.0-0.50) mg/L Sodium 134 L (137-145) mmol/L Potassium 3.8 (3.5-5.1) mmol/L Chloride 93 L (98-107) mmol/L Carbon Dioxide 29 (22-30) mmol/L Anion Gap 15.8 H (5-15) MEQ/L BUN 20 (9-20) mg/dL Creatinine 1.13 (0.66-1.25) mg/dL Estimated GFR > 60.0 ML/MIN Glucose 113 H (74-106) mg/dL POC Glucometer (74 to 106) mg/dL Lactic Acid (0.4-2.0) Calcium 9.5 (8.4-10.2) mg/dL Magnesium (1.6-2.3) mg/dL Total Bilirubin 0.90 (0.2-1.3) mg/dL AST 32 (17-59) U/L ALT 16 (0-50) U/L Alkaline Phosphatase 56 (38-126) U/L Troponin I (0.000-0.034) ng/mL NT-Pro-B Natriuret Pep (<300) pg/mL Serum Total Protein 7.9 (6.3-8.2) g/dL Albumin 4.2 (3.5-5.0) g/dL Urine Color (Yellow) Urine Appearance (Clear) Urine pH (4.6-8.0) Ur Specific [place] (1.005-1.030) Urine Protein (Negative) Urine Glucose (UA) (Negative) mg/dL Urine Ketones (Negative) Urine Blood (Negative) Urine Nitrite (Negative) Urine Bilirubin (Negative) Urine Urobilinogen (0.2) mg/dL Ur Leukocyte Esterase (Negative) U Hyaline Cast (Auto) (0-2) /LPF Urine Microscopic RBC (0-5) /HPF Urine Microscopic WBC (0-5) /HPF Ur Epithelial Cells (None Seen) /HPF Urine Bacteria (None Seen) /HPF Urine Culture Reflexed (NO) Influenza Type A Ag (NEGATIVE) Influenza Type B Ag (NEGATIVE) RSV (PCR) (NEGATIVE) SARS-CoV-2 (PCR) (NEGATIVE) 08/12/22 08/12/22 08/12/22 Range/Units 18:50 18:50 19:56 WBC (4.0-10.5) x10^3/uL RBC (4.1-5.6) x10^6/uL Hgb (12.5-18.0) g/dL Hct (42-50) % MCV (78-100) fL MCH (26-32) pg MCHC (32-36) g/dL RDW (11.5-14.0) % Plt Count (150-450) x10^3/uL MPV (7.5-11.0) fL Gran % (36.0-66.0) % Immature Gran % (Auto) (0.00-0.4) % Nucleat RBC Rel Count (0.00-0.1) % Eos # (Auto) (0-0.5) x10^3/uL Immature Gran # (Auto) (0.00-0.03) x10^3u/L Absolute Lymphs (auto) (1.0-4.6) x10^3/uL Absolute Monos (auto) (0.0-1.3) x10^3/uL Absolute Nucleated RBC (0.00-0.01) x10^3u/L Lymphocytes % (24.0-44.0) % Monocytes % (0.0-12.0) % Eosinophils % (0.00-5.0) % Basophils % (0.0-0.4) % Absolute Granulocytes (1.4-6.9) x10^3/uL Basophils # (0-0.4) x10^3/uL D-Dimer (0.0-0.50) mg/L Sodium (137-145) mmol/L Potassium (3.5-5.1) mmol/L Chloride (98-107) mmol/L Carbon Dioxide (22-30) mmol/L Anion Gap (5-15) MEQ/L BUN (9-20) mg/dL Creatinine (0.66-1.25) mg/dL Estimated GFR ML/MIN Glucose (74-106) mg/dL POC Glucometer (74 to 106) mg/dL Lactic Acid 2.3 H (0.4-2.0) Calcium (8.4-10.2) mg/dL Magnesium 1.7 (1.6-2.3) mg/dL Total Bilirubin (0.2-1.3) mg/dL AST (17-59) U/L ALT (0-50) U/L Alkaline Phosphatase (38-126) U/L Troponin I < 0.012 (0.000-0.034) ng/mL NT-Pro-B Natriuret Pep 1570 (<300) pg/mL Serum Total Protein (6.3-8.2) g/dL Albumin (3.5-5.0) g/dL Urine Color (Yellow) Urine Appearance (Clear) Urine pH (4.6-8.0) Ur Specific [place] (1.005-1.030) Urine Protein (Negative) Urine Glucose (UA) (Negative) mg/dL Urine Ketones (Negative) Urine Blood (Negative) Urine Nitrite (Negative) Urine Bilirubin (Negative) Urine Urobilinogen (0.2) mg/dL Ur Leukocyte Esterase (Negative) U Hyaline Cast (Auto) (0-2) /LPF Urine Microscopic RBC (0-5) /HPF Urine Microscopic WBC (0-5) /HPF Ur Epithelial Cells (None Seen) /HPF Urine Bacteria (None Seen) /HPF Urine Culture Reflexed (NO) Influenza Type A Ag (NEGATIVE) Influenza Type B Ag (NEGATIVE) RSV (PCR) (NEGATIVE) SARS-CoV-2 (PCR) (NEGATIVE) 08/12/22 08/12/22 08/12/22 Range/Units 20:17 21:59 23:14 WBC (4.0-10.5) x10^3/uL RBC (4.1-5.6) x10^6/uL Hgb (12.5-18.0) g/dL Hct (42-50) % MCV (78-100) fL MCH (26-32) pg MCHC (32-36) g/dL RDW (11.5-14.0) % Plt Count (150-450) x10^3/uL MPV (7.5-11.0) fL Gran % (36.0-66.0) % Immature Gran % (Auto) (0.00-0.4) % Nucleat RBC Rel Count (0.00-0.1) % Eos # (Auto) (0-0.5) x10^3/uL Immature Gran # (Auto) (0.00-0.03) x10^3u/L Absolute Lymphs (auto) (1.0-4.6) x10^3/uL Absolute Monos (auto) (0.0-1.3) x10^3/uL Absolute Nucleated RBC (0.00-0.01) x10^3u/L Lymphocytes % (24.0-44.0) % Monocytes % (0.0-12.0) % Eosinophils % (0.00-5.0) % Basophils % (0.0-0.4) % Absolute Granulocytes (1.4-6.9) x10^3/uL Basophils # (0-0.4) x10^3/uL D-Dimer (0.0-0.50) mg/L Sodium (137-145) mmol/L Potassium (3.5-5.1) mmol/L Chloride (98-107) mmol/L Carbon Dioxide (22-30) mmol/L Anion Gap (5-15) MEQ/L BUN (9-20) mg/dL Creatinine (0.66-1.25) mg/dL Estimated GFR ML/MIN Glucose (74-106) mg/dL POC Glucometer (74 to 106) mg/dL Lactic Acid 1.5 (0.4-2.0) Calcium (8.4-10.2) mg/dL Magnesium (1.6-2.3) mg/dL Total Bilirubin (0.2-1.3) mg/dL AST (17-59) U/L ALT (0-50) U/L Alkaline Phosphatase (38-126) U/L Troponin I (0.000-0.034) ng/mL NT-Pro-B Natriuret Pep (<300) pg/mL Serum Total Protein (6.3-8.2) g/dL Albumin (3.5-5.0) g/dL Urine Color Yellow (Yellow) Urine Appearance Clear (Clear) Urine pH 5.5 (4.6-8.0) Ur Specific [place] 1.015 (1.005-1.030) Urine Protein Negative (Negative) Urine Glucose (UA) Negative (Negative) mg/dL Urine Ketones Negative (Negative) Urine Blood Negative (Negative) Urine Nitrite Negative (Negative) Urine Bilirubin Negative (Negative) Urine Urobilinogen 0.2 (0.2) mg/dL Ur Leukocyte Esterase Negative (Negative) U Hyaline Cast (Auto) NONE SEEN (0-2) /LPF Urine Microscopic RBC 0-2 (0-5) /HPF Urine Microscopic WBC 0-2 (0-5) /HPF Ur Epithelial Cells None Seen (None Seen) /HPF Urine Bacteria None Seen (None Seen) /HPF Urine Culture Reflexed NO (NO) Influenza Type A Ag NEGATIVE (NEGATIVE) Influenza Type B Ag NEGATIVE (NEGATIVE) RSV (PCR) NEGATIVE (NEGATIVE) SARS-CoV-2 (PCR) NEGATIVE (NEGATIVE) 08/12/22 08/13/22 08/13/22 Range/Units 23:30 04:30 04:30 WBC 4.7 (4.0-10.5) x10^3/uL RBC 4.02 L (4.1-5.6) x10^6/uL Hgb 13.6 (12.5-18.0) g/dL Hct 39.2 L (42-50) % MCV 97.5 (78-100) fL MCH 33.8 H (26-32) pg MCHC 34.7 (32-36) g/dL RDW 11.9 (11.5-14.0) % Plt Count 181 (150-450) x10^3/uL MPV 10.0 (7.5-11.0) fL Gran % (36.0-66.0) % Immature Gran % (Auto) (0.00-0.4) % Nucleat RBC Rel Count (0.00-0.1) % Eos # (Auto) (0-0.5) x10^3/uL Immature Gran # (Auto) (0.00-0.03) x10^3u/L Absolute Lymphs (auto) (1.0-4.6) x10^3/uL Absolute Monos (auto) (0.0-1.3) x10^3/uL Absolute Nucleated RBC (0.00-0.01) x10^3u/L Lymphocytes % (24.0-44.0) % Monocytes % (0.0-12.0) % Eosinophils % (0.00-5.0) % Basophils % (0.0-0.4) % Absolute Granulocytes (1.4-6.9) x10^3/uL Basophils # (0-0.4) x10^3/uL D-Dimer (0.0-0.50) mg/L Sodium (137-145) mmol/L Potassium (3.5-5.1) mmol/L Chloride (98-107) mmol/L Carbon Dioxide (22-30) mmol/L Anion Gap (5-15) MEQ/L BUN (9-20) mg/dL Creatinine (0.66-1.25) mg/dL Estimated GFR ML/MIN Glucose (74-106) mg/dL POC Glucometer (74 to 106) mg/dL Lactic Acid (0.4-2.0) Calcium (8.4-10.2) mg/dL Magnesium (1.6-2.3) mg/dL Total Bilirubin (0.2-1.3) mg/dL AST (17-59) U/L ALT (0-50) U/L Alkaline Phosphatase (38-126) U/L Troponin I < 0.012 < 0.012 (0.000-0.034) ng/mL NT-Pro-B Natriuret Pep (<300) pg/mL Serum Total Protein (6.3-8.2) g/dL Albumin (3.5-5.0) g/dL Urine Color (Yellow) Urine Appearance (Clear) Urine pH (4.6-8.0) Ur Specific [place] (1.005-1.030) Urine Protein (Negative) Urine Glucose (UA) (Negative) mg/dL Urine Ketones (Negative) Urine Blood (Negative) Urine Nitrite (Negative) Urine Bilirubin (Negative) Urine Urobilinogen (0.2) mg/dL Ur Leukocyte Esterase (Negative) U Hyaline Cast (Auto) (0-2) /LPF Urine Microscopic RBC (0-5) /HPF Urine Microscopic WBC (0-5) /HPF Ur Epithelial Cells (None Seen) /HPF Urine Bacteria (None Seen) /HPF Urine Culture Reflexed (NO) Influenza Type A Ag (NEGATIVE) Influenza Type B Ag (NEGATIVE) RSV (PCR) (NEGATIVE) SARS-CoV-2 (PCR) (NEGATIVE) 08/13/22 08/13/22 Range/Units 04:30 07:27 WBC (4.0-10.5) x10^3/uL RBC (4.1-5.6) x10^6/uL Hgb (12.5-18.0) g/dL Hct (42-50) % MCV (78-100) fL MCH (26-32) pg MCHC (32-36) g/dL RDW (11.5-14.0) % Plt Count (150-450) x10^3/uL MPV (7.5-11.0) fL Gran % (36.0-66.0) % Immature Gran % (Auto) (0.00-0.4) % Nucleat RBC Rel Count (0.00-0.1) % Eos # (Auto) (0-0.5) x10^3/uL Immature Gran # (Auto) (0.00-0.03) x10^3u/L Absolute Lymphs (auto) (1.0-4.6) x10^3/uL Absolute Monos (auto) (0.0-1.3) x10^3/uL Absolute Nucleated RBC (0.00-0.01) x10^3u/L Lymphocytes % (24.0-44.0) % Monocytes % (0.0-12.0) % Eosinophils % (0.00-5.0) % Basophils % (0.0-0.4) % Absolute Granulocytes (1.4-6.9) x10^3/uL Basophils # (0-0.4) x10^3/uL D-Dimer (0.0-0.50) mg/L Sodium 129 L (137-145) mmol/L Potassium 4.0 (3.5-5.1) mmol/L Chloride 94 L (98-107) mmol/L Carbon Dioxide 22 (22-30) mmol/L Anion Gap 16.8 H (5-15) MEQ/L BUN 20 (9-20) mg/dL Creatinine 0.96 (0.66-1.25) mg/dL Estimated GFR > 60.0 ML/MIN Glucose 219 H (74-106) mg/dL POC Glucometer 163 H (74 to 106) mg/dL Lactic Acid (0.4-2.0) Calcium 8.9 (8.4-10.2) mg/dL Magnesium (1.6-2.3) mg/dL Total Bilirubin (0.2-1.3) mg/dL AST (17-59) U/L ALT (0-50) U/L Alkaline Phosphatase (38-126) U/L Troponin I (0.000-0.034) ng/mL NT-Pro-B Natriuret Pep (<300) pg/mL Serum Total Protein (6.3-8.2) g/dL Albumin (3.5-5.0) g/dL Urine Color (Yellow) Urine Appearance (Clear) Urine pH (4.6-8.0) Ur Specific [place] (1.005-1.030) Urine Protein (Negative) Urine Glucose (UA) (Negative) mg/dL Urine Ketones (Negative) Urine Blood (Negative) Urine Nitrite (Negative) Urine Bilirubin (Negative) Urine Urobilinogen (0.2) mg/dL Ur Leukocyte Esterase (Negative) U Hyaline Cast (Auto) (0-2) /LPF Urine Microscopic RBC (0-5) /HPF Urine Microscopic WBC (0-5) /HPF Ur Epithelial Cells (None Seen) /HPF Urine Bacteria (None Seen) /HPF Urine Culture Reflexed (NO) Influenza Type A Ag (NEGATIVE) Influenza Type B Ag (NEGATIVE) RSV (PCR) (NEGATIVE) SARS-CoV-2 (PCR) (NEGATIVE) Radiology Exams: Radiology Procedures Category Date Time Status CHEST 1 VIEW (PORTABLE) Stat Exams 08/12/22 19:37 Completed CHEST WITH CONTRAST [CT] Stat Exams 08/12/22 23:17 Completed Telemedicine Encounter - Telemedicine Encounter Telemedicine Encounter: The entirety of this encounter was performed via Telemedicine"
[2022-08-13] MEDS ORDERED: Lasix 40 MG/4 ML IV SCH (10:00)
[2022-08-13] MEDS ORDERED: DELTASONE 20 MG PO SCH (10:00)
[2022-08-13] MEDS ORDERED: Coreg PO SCH (10:00)
[2022-08-13] MEDS: Protonix 40MG Tablet PO SCH ×2 (10:57→16:01)
[2022-08-13] MEDS: DELTASONE 20 MG PO SCH (10:57)
[2022-08-13] MEDS: COREG 12.5 MG PO SCH ×2 (10:57→21:08)
[2022-08-13] MEDS: Vibramycin 100 MG PO SCH ×2 (10:57→21:08)
[2022-08-13] MEDS ORDERED: NON-FORMULARY ITEM (Omeprazole [Omeprazole] 20 MG Capsule.Dr) PO SCH (11:30)
[2022-08-13] MEDS: TYLENOL EXTRA STRENGTH 500 MG PO PRN (17:34)
[2022-08-13] MEDS ORDERED: Flomax 0.4 MG PO SCH (22:00)
[2022-08-13] MEDS ORDERED: ZOCOR 20MG PO SCH (22:00)
[2022-08-13] MEDS ORDERED: NON-FORMULARY ITEM (Pravastatin Sodium [Pravachol] 40 MG Tablet) PO SCH (22:00)
[2022-08-13] MEDS ORDERED: ZYLOPRIM 100 MG PO SCH (22:00)
[2022-08-14] MEDS: DUONEB 0.5-3 MG/3 ml Neb IH SCH (07:17)
[2022-08-14] MEDS: Advair Hfa 115/21 Common canister IH SCH (07:19)
[2022-08-14 07:21] VITALS: O2SAT 99
[2022-08-14 07:22] VITALS: BP 164/97; PULSE 65
[2022-08-14] MEDS ORDERED: Lasix 40 MG PO SCH (10:00)
[2022-08-14] MEDS: DELTASONE 20 MG PO SCH (10:18)
[2022-08-14] MEDS: Protonix 40MG Tablet PO SCH (10:19)
[2022-08-14] MEDS: COREG 12.5 MG PO SCH (10:19)
[2022-08-14] MEDS: Vibramycin 100 MG PO SCH (10:19)
[2022-08-14] MEDS: TYLENOL EXTRA STRENGTH 500 MG PO PRN (10:37)
--- NOTE | 2022-08-14 11:07 | PCM.DS ---
Discharge Summary Date of Admission: 08/13/22 03:35 Date of Discharge: 14 August 2022 Admitting Physician: IVANA CHAVEZ DO Primary Care Provider: JESI NIEVES Allergies Allergies No Known Drug Allergies Allergy (Verified 08/12/22 18:07) Hospital Summary - Hospital Course Hospital Course: PAtient doreen treated with prednison and duonebs. He was down to 1 LPM of oxygen, he ususally uses 3 lpm at home. Will discharge on home doxycycline and 50 of prednisone daily. - Vitals & Intake/Output Vital Signs: Vital Signs Temperature 97.5 F 08/14/22 07:21 Pulse Rate 65 08/14/22 07:21 Respiratory Rate 18 08/14/22 07:21 Blood Pressure 164/97 08/14/22 07:21 O2 Sat by Pulse Oximetry 99 08/14/22 07:21 Intake & Output: Intake & Output 08/11/22 08/12/22 08/13/22 08/14/22 11:59 11:59 11:59 11:59 Intake Total 660 Output Total 500 Balance -500 660 Weight 70.3 kg 70.1 kg - Lab Result Diagrams: 08/13/22 04:30 08/13/22 04:30 Lab Results-Last 24 Hrs: Lab Results-Last 24 Hours 08/13/22 08/14/22 Range/Units 11:31 07:08 POC Glucometer 135 H 136 H (74 to 106) mg/dL Micro Results-Entire Visit: Accuchecks Date 08/13/22 Time 11:54 - Radiology Exams Ordered Rad Exams-Entire Visit: Radiology Procedures Category Date Time Status CHEST 1 VIEW (PORTABLE) Stat Exams 08/12/22 19:37 Completed CHEST WITH CONTRAST [CT] Stat Exams 08/12/22 23:17 Completed - Procedures and Test Procedures and Tests throughout Hospitalization: Therapy Orders & Screens 08/12/22 19:25 Respiratory Therapy Assessment DAILY Comment: 08/13/22 03:38 Oxygen Nasal Cannula 3 lpm Comment: Respiratory Therapy Consult ROUTINE Comment: Reason For Exam: 08/13/22 09:49 Respiratory Therapy Consult ONCE Comment: Reason For Exam: Diagnosis: COPD Exacerbation, CHF 08/14/22 06:52 RT Miscellaneous Order ROUTINE Comment: Physician Instructions: wean o2- does not wear at home Reason For Exam: Diagnosis: COPD Exacerbation, CHF - Discharge Disposition: Home, Self-Care Condition: Good Prescriptions: New predniSONE [Prednisone] 50 mg PO DAILY 5 Days #5 tablet No Action Tamsulosin HCl 0.4 mg [Flomax 0.4 MG] 0.4 mg PO HS Pravastatin Sodium [Pravachol] 40 mg PO HS Allopurinol 100 mg [Zyloprim 100 mg] 100 mg PO HS Carvedilol [Coreg ] 1 tab PO BID Prednisone 20 mg [Deltasone 20 mg] 20 mg PO DAILY Doxycycline Hyclate 100 mg [Vibramycin 100 MG] 100 mg PO BID Omeprazole 20 mg PO AC Instructions: Exacerbation of COPD (DC) Additional Instructions: Please pickle cutter prescription from pharmacy. Continue as directed. Call for any questions or concerns Follow up with: JESI NIEVES [Primary Care Provider] - Forms: Discharge Instructions
== END 2022-08-14 11:22 | disposition home or self-care (01) ==
LOC: ED 18:02 → MED SURG 08-13 03:35
PROVIDERS: ADMIT Internal Medicine; ATTEND Family Medicine
DX: J44.1 Chronic obstructive pulmonary disease with (acute) exacerbation (principal); I11.0 Hypertensive heart disease with heart failure; I50.9 Heart failure, unspecified; M10.9 Gout, unspecified; N40.0 Benign prostatic hyperplasia without lower urinary tract symptoms; E78.5 Hyperlipidemia, unspecified; Z79.899 Other long term (current) drug therapy; Z20.828 Contact with and (suspected) exposure to other viral communicable diseases
CPT/HCPCS: 0241U; 36000; 36415; 71045; 71260; 80048; 80053; 81001; 82947; 83036; 83605; 83735; 83880; 84484; 85025; 85027; 85379; 93005; 93041; 93268; 94640; 94760; 94762; 96365; 96374; 99285; J0696; J1817; J1940; J2930; Q3014; A9270-GY; G0378